=== PATIENT | female | born 1995 | race Caucasian/White ===

== ENCOUNTER 2021-07-15 21:43 | Emergency (ER) | payer BC, MEDICAID, SELFPAY ==
[2021-07-15 21:46] VITALS: BP 133/88; PULSE 85; RESP 16; TEMP 36.9; O2SAT 99; BMI 29.0
[2021-07-15 22:03] LABS: Appearance Urine HAZY; Color Urine YELLOW; Glucose Urine UA NEG (NEG); Leukocyte Esterase Urine NEG (NEG); Nitrite Urine NEG (NEG); PH 6.5 (5.0-8.0); UACC Culture Trigger NO; Urine Blood 1+ (NEG); Urine Ketones NEG (NEG); Urine Protein NEG (NEG-TRACE)
[2021-07-15 22:06] LABS: UPreg QC Valid YES; Urine Pregnancy NEGATIVE (NEGATIVE)
[2021-07-15 22:19] LABS: Bacteria Urine 2+ /LPF; Mucus Urine 1+ /LPF; Squamous Epithelial Cell Urine 2+ /LPF
[2021-07-15 22:20] LABS: Amorphous Sediment Urine 2+ /LPF
[2021-07-15 23:14] LABS: Basophils Absolute Auto 0.1 X10*3/uL (0.0-0.2); Basophils Percent Auto 0.5 % (0-2); Eosinophils Absolute Auto 0.1 X10*3/uL (0.0-0.4); Hematocrit 39.6 % (37.0-47.0); Hemoglobin 13.3 g/dl (12.0-16.0); Imm Gran Abs Auto 0.06 X10*3/uL (0.00-0.03); Imm Gran Pct Auto 0.5 % (0.0-0.4); Lymphocytes Absolute Auto 3.3 X10*3/uL (1.2-4.9); Lymphocytes Percent Auto 27.4 % (20-40); MANUAL DIFF FLAG NO; Mean Corpuscular HGB Conc 33.6 g/dl (31.0-35.0); Mean Corpuscular Hemoglobin 28.2 pg (27.0-33.0); Mean Corpuscular Volume 83.9 fL (80.0-98.0); Mean Platelet Volume 10.2 fL (9.4-12.3); Monocytes Absolute Auto 0.8 X10*3/uL (0.1-1.2); Monocytes Percent Auto 6.5 % (2-11); Neutrophils Absolute Auto 7.7 x10*3/uL (2.0-8.3); Neutrophils Percent Auto 64.1 % (45-73); Platelet Count 305 X10*3/uL (160-400); Red Blood Count 4.72 X10*6/uL (4.20-5.50); Red Cell Distribution Width 12.9 % (11.0-16.0)
[2021-07-15 23:38] LABS: Alanine Aminotransferase 42 U/L (0-31); Albumin Level 4.5 g/dL (3.5-5.0); Alkaline Phosphatase 60 U/L (39-117); Anion Gap 15 (12-20); Aspartate Amino Transferase 26 U/L (5-31); Bilirubin Direct 0.3 mg/dL (0.0-0.5); Bilirubin Total 0.8 mg/dL (0.0-1.0); Blood Urea Nitrogen 8 mg/dL (9-16); Calcium 9.6 mg/dL (8.4-10.2); Carbon Dioxide 23 mmol/L (22-29); Chloride 104 mmol/L (96-108); Creatinine Clr Calc Pharmacy 133.5; Estimated Glomerular Filt Rate > 60; Glucose Random 118 mg/dL (60-115); Lipase 22 U/L (8-78); Potassium 4.1 mmol/L (3.3-5.1); Sodium 138 mmol/L (135-145); Total Protein 6.9 g/dL (6.5-8.0)
== END 2021-07-16 01:03 | disposition left against medical advice (07) ==
PROVIDERS: Emergency Provider Emergency Medicine
DX: M54.50 Low back pain, unspecified (principal); R11.0 Nausea; Z79.899 Other long term (current) drug therapy
CPT/HCPCS: 36415; 80048; 80076; 81001; 81003; 81025; 83690; 85025; 99283

== ENCOUNTER 2023-12-27 10:33 | Emergency (ER) | payer MEDICAID, SELFPAY ==
--- NOTE | ~2023-12-27 | CT_ITS ---
EXAMINATION: CT HEAD WITHOUT CONTRAST CLINICAL INFORMATION: Headache and hypertension COMPARISON: None available. TECHNIQUE: Contiguous axial imaging was performed from the skull base to vertex without intravenous administration of contrast. This CT examination was performed using dose optimization techniques as appropriate, variously including the following: *Automated exposure control *Adjustment of mA and/or kV according to patient size (this includes techniques or standardized protocols for targeted exams where dose is matched to indication/reason for exam; i.e. extremities or head) *Use of iterative reconstruction technique DLP: 613 mGy-cm FINDINGS: Ventricles and sulci are normal. There is no evidence of acute intracranial hemorrhage, midline shift, mass effect, acute territorial edematous infarction, abnormal parenchymal attenuation or abnormal extra-axial fluid collection. Osseous calvarium and calvarial soft tissues are unremarkable. Visualized paranasal sinuses are well aerated. Bilateral mastoid air cells and middle ear cavities are well-aerated. CT/CT head/brain wo IV con IMPRESSION: No acute intracranial abnormality. Electronically signed by: Rupinder Mccord MD 12/27/2023 02:09 PM EDT
--- NOTE | 2023-12-27 10:35 | ECG_ITS ---
Test Reason : CP Blood Pressure : / mmHG Vent. Rate : 081 BPM Atrial Rate : 081 BPM P-R Int : 122 ms QRS Dur : 082 ms QT Int : 344 ms P-R-T Axes : 016 057 038 degrees QTc Int : 399 ms Normal sinus rhythm with sinus arrhythmia Normal ECG When compared with ECG of 09-AUG-2019 10:45, No significant change was found Referred By: Generic ED Physician Electronically Signed By:JEZ CERVANTES
[2023-12-27 10:41] VITALS: BP 154/97; PULSE 70; RESP 16; TEMP 36.6; O2SAT 99; BMI 28.0
[2023-12-27 10:59] LABS: MANUAL DIFF FLAG NO
[2023-12-27 11:00] LABS: Basophils Absolute Auto 0.1 X10*3/uL (0.0-0.2); Basophils Percent Auto 0.6 % (0-2); Eosinophils Absolute Auto 0.2 X10*3/uL (0.0-0.4); Eosinophils Percent Auto 2.1 % (0-4); Imm Gran Abs Auto 0.04 X10*3/uL (0.00-0.03); Imm Gran Pct Auto 0.4 % (0.0-0.4); Lymphocytes Absolute Auto 2.1 X10*3/uL (1.2-4.9); Lymphocytes Percent Auto 21.6 % (20-40); Mean Corpuscular HGB Conc 34.7 g/dl (31.0-35.0); Mean Corpuscular Hemoglobin 30.2 pg (27.0-33.0); Mean Corpuscular Volume 87.2 fL (80.0-98.0); Mean Platelet Volume 10.3 fL (9.4-12.3); Monocytes Absolute Auto 0.8 X10*3/uL (0.1-1.2); Monocytes Percent Auto 8.1 % (2-11); Neutrophils Absolute Auto 6.5 x10*3/uL (2.0-8.3); Neutrophils Percent Auto 67.2 % (45-73); Platelet Count 299 X10*3/uL (160-400); Red Blood Count 5.62 X10*6/uL (4.20-5.50); Red Cell Distribution Width 13.2 % (11.0-16.0); White Blood Count 9.6 X10*3/uL (4.8-10.8)
[2023-12-27 11:17] LABS: Anion Gap 14 (12-20); Blood Urea Nitrogen 9 mg/dL (9-16); Calcium 9.6 mg/dL (8.4-10.2); Carbon Dioxide 23 mmol/L (22-29); Chloride 108 mmol/L (96-108); Creatinine Clr Calc Pharmacy 111.4; Estimated Glomerular Filt Rate > 60; Glucose Random 107 mg/dL (60-115); Potassium 3.8 mmol/L (3.3-5.1); Sodium 141 mmol/L (135-145)
[2023-12-27 11:34] LABS: Troponin-I High Sensitivity < 2.7 ng/L (<3.5-17.0)
[2023-12-27 11:48] VITALS: PULSE 73
--- NOTE | 2023-12-27 12:01 | ED_ITS ---
HPI - Chest Pain General Chief Complaint: Chest Pain Stated Complaint: CP, High BP Time Seen by Provider: 12/27/23 11:30 Source: patient Mode of arrival: ambulatory Limitations: no limitations History of Present Illness ED Provider: DR. Ledesma HPI narrative: 28 years old female walked to the ED from a dental office after was found to have high blood pressure and patient required medical clearance before any dental procedure. Patient had history of gestational high blood pressure and preeclampsia currently patient is taking no blood pressure medication, for the past week she has been having a headache, dizziness, blurry vision, palpitation and mild chest pain. scheduled to have dental procedure today that was canceled after found to have high blood pressure today. patient went to [facility] yesterday for evaluation had 2 high blood pressure reading then patient decided not to wait to be seen there. Related Data Previous Rx's ?Medication ?Instructions ?Recorded lisinopril 5 mg tablet 5 mg PO DAILY #14 tabs 12/27/23 Allergies Allergy/AdvReac Type Severity Reaction Status Date / Time midazolam [From VERSED] Allergy Severe VIOLENT Verified 12/27/23 10:48 versed Allergy Unknown unsure Uncoded 07/14/19 00:00 reactive as child Review of Systems 2 Review of Systems: all other systems are reviewed and are negative Constitutional: Reports as per HPI and Reports no additional constitutional complaints Eyes: Reports as per HPI and Reports no additional eye complaints Reports system reviewed and no additional complaints, except as documented Cardiovascular: Reports as per HPI and Reports no additional cardiovascular complaints Respiratory: Reports as per HPI and Reports no additional respiratory complaints Gastrointestinal: Reports as per HPI and Reports no additional gastrointestinal complaints Genitourinary: Reports no additional female genitourinary complaints Musculoskeletal: Reports no additional musculoskeletal complaints Skin/Breast: Reports system reviewed and no additional complaints, except as docu Psychiatric: Reports no additional psychiatric complaints Endocrine: Reports no additional endocrine complaints Hematologic/Lymphatic: Reports no additional hematologic/lymphatic complaints Allergic/Immunologic: Reports no additional allergic/immunologic complaints Reports system reviewed and no additional complaints, except as documented and Reports Abnormal speech present [facility] Social History Social History Smoked in Last 30 Days: Yes Use of substances other than those prescribed or required for medical reasons: Yes Substance Use Type: Marijuana Substance Use Frequency: Occasionally Advance Directives: No Do you have a plan to hurt others: No Plan Patient : No Physical Exam 2 Vital Signs: Vital Signs: Last Vital Signs Temp 99.4 F 12/27/23 12:22 Pulse 72 12/27/23 12:22 Resp 18 12/27/23 12:22 BP 139/92 H 12/27/23 12:31 Pulse Ox 99 12/27/23 12:22 O2 Del Method Room Air 12/27/23 12:22 BMI result Body Mass Index 28.0 Vital signs have been reviewed and appear to be correct. Blood pressure elevated. Heart rate normal. Respiratory rate normal. Temperature normal. Oxygen saturation normal. Appearance: Alert. Oriented X3. No acute distress. Head: Normal external exam. Normocephalic. Atraumatic. No Quinonez signs noted. No raccoon eyes noted Eyes: PERRLA. EOMI. Conjunctiva and sclera normal. Eyelids normal. ENT: TM's Normal. Pharynx normal. Uvula midline. Moist mucous membranes. No trismus noted. No drooling noted. No muffled voice noted. Neck: Normal inspection. Neck supple. FROM. No adenopathy. Thyroid Normal. No meningeal signs. No neck mass noted. CVS: Normal heart rate and rhythm. Heart sound normal. No murmurs noted. Pulses normal throughout. Respiratory: No respiratory distress. Painless inspiration. Breath sounds normal. No wheezes/rales/rhonchi noted. Chest nontender. No accessory muscle usage noted or decreased air movement noted. Abdomen: Soft and nontender. Bowel sounds normal in all 4 quadrants. No distention noted. No organomegaly noted. No visible injury noted. Back: No CVA tenderness. Full range of motion noted. Skin: Skin warm and dry. Normal skin color. Normal skin turgor. No rashes/lesions/lacerations noted. Extremities: No lower extremity edema. Extremities exhibit normal range of motion. Extremities nontender. Neuro: Oriented X 3. Cranial nerve exam: II-XII are grossly intact No motor deficit. No sensory deficit. Reflexes normal. Course Reevaluation(s) Reevaluation #1: 28-year-old female with history of gestational hypertension and preeclampsia currently no diagnosis for hypertension had high blood pressure on different occasions with symptoms. No acute finding today for high blood pressure or evidence of end-organ damage. Will start the patient on lisinopril low dose 5 mg daily patient is scheduled to see her primary doctor within a week was instructed to keep records of her blood pressure and reviewed with her primary doctor. Time: 14:29 Medications Administered Discontinued Medications Generic Name Dose Route Start Last Admin Trade Name Justin PRN Reason Stop Dose Admin Lisinopril 5 mg 12/27/23 12:13 12/27/23 12:31 Lisinopril 5 Mg Tablet PO 12/27/23 12:14 5 mg ONCE ONE Administration Protocol Medical Decision Making Differential Diagnosis Differential Diagnoses: The differential diagnosis associated with the presentation includes ( Hypertensive bleed, intracranial bleed, essential hypertension, ACS, severe anemia, dehydration.) Admission/Observation Consideration of admission/observation: Escalation of care including admission/observation considered Lab Data MDM Lab Attestation statement: I reviewed the patient's lab results. 12/27/23 10:55 12/27/23 10:55 Labs: Lab Results 12/27/23 Range/Units 10:55 WBC 9.6 (4.8-10.8) X10*3/uL RBC 5.62 H (4.20-5.50) X10*6/uL Hgb 17.0 H D (12.0-16.0) g/dl Hct 49.0 H D (37.0-47.0) % MCV 87.2 (80.0-98.0) fL MCH 30.2 (27.0-33.0) pg MCHC 34.7 (31.0-35.0) g/dl RDW 13.2 (11.0-16.0) % Plt Count 299 (160-400) X10*3/uL MPV 10.3 (9.4-12.3) fL Immature Gran % (Auto) 0.4 (0.0-0.4) % Neut % (Auto) 67.2 (45-73) % Lymph % (Auto) 21.6 (20-40) % Casey % (Auto) 8.1 (2-11) % Eos % (Auto) 2.1 (0-4) % Baso % (Auto) 0.6 (0-2) % Lymph # (Auto) 2.1 (1.2-4.9) X10*3/uL Casey # (Auto) 0.8 (0.1-1.2) X10*3/uL Eos # (Auto) 0.2 (0.0-0.4) X10*3/uL Baso # (Auto) 0.1 (0.0-0.2) X10*3/uL Abs Immat Gran (auto) 0.04 H (0.00-0.03) X10*3/uL Absolute Neuts (auto) 6.5 (2.0-8.3) x10*3/uL Absolute Nucleated RBC 0.000 (0.0-0.012) X10*3/uL Nucleated RBC % (auto) 0.0 (0.0-0.2) /100WBC Sodium 141 (135-145) mmol/L Potassium 3.8 (3.3-5.1) mmol/L Chloride 108 (96-108) mmol/L Carbon Dioxide 23 (22-29) mmol/L Anion Gap 14 (12-20) BUN 9 (9-16) mg/dL Creatinine 0.81 (0.5-1.4) mg/dL Estim Creat Clear Calc 111.4 Estimated GFR > 60 Random Glucose 107 (60-115) mg/dL Calcium 9.6 (8.4-10.2) mg/dL Troponin I High Sens < 2.7 (<3.5-17.0) ng/L Independent Interpretation I performed an independent interpretation of an: EKG ( Normal sinus rhythm at 81 beats per minutes, normal intervals, no ST-T changes, no change from previous EKG.) and CT Scan ( head: No acute intracranial pathology.) Radiology Impression Discussion of test interpretation with radiology: I have reviewed the radiologist's reading. Discharge Plan Discharge Clinical Impression: Atypical chest pain, Essential hypertension Patient Disposition: Home, Self-Care Instructions: Hypertension (ED) Additional Instructions: take and record your blood pressure at home 3 different times a day for 1 week and review the records with your PCP. Prescriptions: New lisinopril 5 mg tablet 5 mg PO DAILY Qty: 14 0RF Referrals: Pam Connelly LPN [Emergency Nurse] - Print Language: Japanese
[2023-12-27 12:22] VITALS: BP 136/99; PULSE 72; RESP 18; TEMP 37.4; O2SAT 99
[2023-12-27 12:31] VITALS: BP 139/92
[2023-12-27] MEDS: lisinopriL 5 MG TABLET PO (12:31)
[2023-12-27 14:32] VITALS: BP 127/86; PULSE 76; RESP 14; O2SAT 97
[2023-12-27 14:53] VITALS: BP 127/86; PULSE 76; RESP 14; TEMP 37.1; O2SAT 97
== END 2023-12-27 14:54 | disposition home or self-care (01) ==
PROVIDERS: Emergency Provider Emergency Medicine
DX: R07.89 Other chest pain (principal); I10 Essential (primary) hypertension
CPT/HCPCS: 36415; 70450; 80048; 84484; 85025; 93005; 99284

== ENCOUNTER 2024-01-03 16:18 | Emergency (ER) | payer MEDICAID, SELFPAY ==
--- NOTE | ~2024-01-03 | XR_ITS ---
EXAMINATION: XR CHEST CLINICAL INFORMATION: Chest pain COMPARISON: None available. TECHNIQUE: 2 views of the chest were obtained. FINDINGS: No significant abnormality is noted involving the heart, lungs, mediastinum, bony thorax or soft tissues. XR/XR chest 2V IMPRESSION: Unremarkable examination. Electronically signed by: Frank Fox MD 01/03/2024 05:28 PM EDT RP
[2024-01-03 16:33] VITALS: BP 164/102; PULSE 78; RESP 16; TEMP 37.1; O2SAT 98; BMI 27.9
--- NOTE | 2024-01-03 16:34 | ED_ITS ---
HPI - General Adult General Chief complaint: Chest Pain Stated complaint: HBP issues/doesn't feel good Related Data Previous Rx's ?Medication ?Instructions ?Recorded lisinopril 5 mg tablet 5 mg PO DAILY #14 tabs 12/27/23 Allergies Allergy/AdvReac Type Severity Reaction Status Date / Time midazolam [From VERSED] Allergy Severe VIOLENT Verified 01/03/24 16:38 versed Allergy Unknown unsure Uncoded 07/14/19 00:00 reactive as child [facility] Social History Social History Substance Use Type: Marijuana Advance Directives: No Advance Directives Information Provided: No Physical Exam ED Vital Signs: BMI result Body Mass Index 27.9 Course Course Course Narrative: This is an RME: Additional HPI, ROS, PE not included below will be deferred to primary provider. RME assessment and note performed by: Jacy Davalos PA-C This is a [id number]-female, with a hx of new diagnosis of HTN, who presents to the ER with complaints of chest pain. Pt states that several days ago she was seen here for similar symptoms. Reporting rapid heart rate/palpitations, shakiness, CP. No recent travel, surgeries or hospitalizations. Recently seen by her PCP and was started on amlodipine, 1st dose taken this morning. She took her blood pressure at home and was elevated in the 160s over 100s. Also reporting flushing in her face. Plan: Labs, EKG, CXR, viral swabs Reevaluation(s) Reevaluation #1: Patient left without completing treatment. Medical Decision Making Lab Data 01/03/24 17:03 01/03/24 17:03 Labs: Lab Results 01/03/24 01/03/24 Range/Units 17:03 17:04 WBC 10.4 (4.8-10.8) X10*3/uL RBC 5.21 (4.20-5.50) X10*6/uL Hgb 15.5 (12.0-16.0) g/dl Hct 45.0 (37.0-47.0) % MCV 86.4 (80.0-98.0) fL MCH 29.8 (27.0-33.0) pg MCHC 34.4 (31.0-35.0) g/dl RDW 12.6 (11.0-16.0) % Plt Count 324 (160-400) X10*3/uL MPV 10.7 (9.4-12.3) fL Immature Gran % (Auto) 0.3 (0.0-0.4) % Neut % (Auto) 50.9 (45-73) % Lymph % (Auto) 38.4 (20-40) % Todd % (Auto) 8.4 (2-11) % Eos % (Auto) 1.2 (0-4) % Baso % (Auto) 0.8 (0-2) % Lymph # (Auto) 4.0 (1.2-4.9) X10*3/uL Todd # (Auto) 0.9 (0.1-1.2) X10*3/uL Eos # (Auto) 0.1 (0.0-0.4) X10*3/uL Baso # (Auto) 0.1 (0.0-0.2) X10*3/uL Abs Immat Gran (auto) 0.03 (0.00-0.03) X10*3/uL Absolute Neuts (auto) 5.3 (2.0-8.3) x10*3/uL Absolute Nucleated RBC 0.000 (0.0-0.012) X10*3/uL Nucleated RBC % (auto) 0.0 (0.0-0.2) /100WBC PT 10.7 L (10.9-12.4) SEC INR 0.9 (0.9-1.1) Sodium 141 (135-145) mmol/L Potassium 3.4 (3.3-5.1) mmol/L Chloride 108 (96-108) mmol/L Carbon Dioxide 23 (22-29) mmol/L Anion Gap 13 (12-20) BUN 10 (9-16) mg/dL Creatinine 0.79 (0.5-1.4) mg/dL Estim Creat Clear Calc 114.1 Estimated GFR > 60 Random Glucose 91 (60-115) mg/dL Calcium 9.9 (8.4-10.2) mg/dL Magnesium 2.0 (1.6-2.6) mg/dL Total Bilirubin 1.0 (0.0-1.0) mg/dL Direct Bilirubin 0.3 (0.0-0.5) mg/dL AST 21 (5-31) U/L ALT 28 (0-31) U/L Alkaline Phosphatase 48 (39-117) U/L Troponin I High Sens < 2.7 (<3.5-17.0) ng/L Total Protein 7.4 (6.5-8.0) g/dL Albumin 4.6 (3.5-5.0) g/dL TSH 0.32 (0.32-4.0) uIU/mL Beta HCG, Quant < 2 mIU/mL Influenza Type A (PCR) NEGATIVE (Negative) Influenza Type B (PCR) NEGATIVE (Negative) RSV RNA Qual (PCR) NEGATIVE (Negative) SARS-CoV-2 RNA (RT-PCR) NEGATIVE (Negative) Discharge Plan Discharge Clinical Impression: Chest pain Patient Disposition: Left W/O Completing Treatment Prescriptions: No Action lisinopril 5 mg tablet 5 mg PO DAILY Qty: 14 0RF Discharge Date/Time: 01/03/24 21:16
--- NOTE | 2024-01-03 16:37 | ECG_ITS ---
Test Reason : CP Blood Pressure : / mmHG Vent. Rate : 083 BPM Atrial Rate : 083 BPM P-R Int : 130 ms QRS Dur : 094 ms QT Int : 348 ms P-R-T Axes : 009 045 026 degrees QTc Int : 408 ms Normal sinus rhythm Normal ECG When compared with ECG of 27-DEC-2023 10:33, No significant change was found Referred By: Jacy Davalos Electronically Signed By:JEZ CERVANTES
--- NOTE | 2024-01-03 16:39 | PC.NURSE ---
patient reports her mother Heidi phone number is [phone] if needed
[2024-01-03 17:09] LABS: MANUAL DIFF FLAG NO
[2024-01-03 17:15] LABS: INTERNATIONAL NORM RATIO 0.9 (0.9-1.1); Prothrombin Time 10.7 SEC (10.9-12.4)
[2024-01-03 17:36] LABS: Basophils Absolute Auto 0.1 X10*3/uL (0.0-0.2); Basophils Percent Auto 0.8 % (0-2); Eosinophils Absolute Auto 0.1 X10*3/uL (0.0-0.4); Eosinophils Percent Auto 1.2 % (0-4); Hemoglobin 15.5 g/dl (12.0-16.0); Imm Gran Abs Auto 0.03 X10*3/uL (0.00-0.03); Imm Gran Pct Auto 0.3 % (0.0-0.4); Lymphocytes Percent Auto 38.4 % (20-40); Mean Corpuscular HGB Conc 34.4 g/dl (31.0-35.0); Mean Corpuscular Hemoglobin 29.8 pg (27.0-33.0); Mean Corpuscular Volume 86.4 fL (80.0-98.0); Mean Platelet Volume 10.7 fL (9.4-12.3); Monocytes Absolute Auto 0.9 X10*3/uL (0.1-1.2); Monocytes Percent Auto 8.4 % (2-11); Neutrophils Absolute Auto 5.3 x10*3/uL (2.0-8.3); Neutrophils Percent Auto 50.9 % (45-73); Platelet Count 324 X10*3/uL (160-400); Red Blood Count 5.21 X10*6/uL (4.20-5.50); Red Cell Distribution Width 12.6 % (11.0-16.0); White Blood Count 10.4 X10*3/uL (4.8-10.8)
[2024-01-03 17:39] LABS: Alanine Aminotransferase 28 U/L (0-31); Albumin Level 4.6 g/dL (3.5-5.0); Alkaline Phosphatase 48 U/L (39-117); Anion Gap 13 (12-20); Aspartate Amino Transferase 21 U/L (5-31); Bilirubin Direct 0.3 mg/dL (0.0-0.5); Blood Urea Nitrogen 10 mg/dL (9-16); Calcium 9.9 mg/dL (8.4-10.2); Carbon Dioxide 23 mmol/L (22-29); Chloride 108 mmol/L (96-108); Creatinine Clr Calc Pharmacy 114.1; Estimated Glomerular Filt Rate > 60; Glucose Random 91 mg/dL (60-115); Potassium 3.4 mmol/L (3.3-5.1); Sodium 141 mmol/L (135-145); Total Protein 7.4 g/dL (6.5-8.0)
[2024-01-03 17:44] LABS: HCG Quantitative < 2 mIU/mL
[2024-01-03 17:44] LABS: Troponin-I High Sensitivity < 2.7 ng/L (<3.5-17.0)
[2024-01-03 17:50] LABS: Influenza A PCR NEGATIVE (Negative); Influenza B PCR NEGATIVE (Negative); Resp Syncy Virus RNA Qual PCR NEGATIVE (Negative); SARS COV2 PCR INHOUSE NEGATIVE (Negative)
[2024-01-03 17:53] LABS: TSH reflex Free T4 0.32 uIU/mL (0.32-4.0)
== END 2024-01-03 21:16 | disposition left against medical advice (07) ==
PROVIDERS: Physician Assistant Medical; Emergency Provider Emergency Medicine; PCP Internal Medicine
DX: R07.9 Chest pain, unspecified (principal); R00.2 Palpitations; Z53.21 Procedure and treatment not carried out due to patient leaving prior to being seen by health care provider; Z03.818 Encounter for observation for suspected exposure to other biological agents ruled out
CPT/HCPCS: 0241U; 36415; 71046; 80048; 80076; 83735; 84443; 84484; 84702; 85025; 85610; 93005; 99281; 99283; 99284

== ENCOUNTER 2024-03-01 21:36 | Emergency (ER) | payer MEDICAID, SELFPAY ==
[2024-03-01 21:43] VITALS: BP 130/75; PULSE 96; RESP 20; TEMP 36.5; O2SAT 98; BMI 24.5
[2024-03-01 22:04] LABS: MANUAL DIFF FLAG NO
[2024-03-01 22:05] LABS: Basophils Absolute Auto 0.1 X10*3/uL (0.0-0.2); Basophils Percent Auto 0.6 % (0-2); Eosinophils Absolute Auto 0.2 X10*3/uL (0.0-0.4); Eosinophils Percent Auto 1.9 % (0-4); Hematocrit 39.9 % (37.0-47.0); Imm Gran Abs Auto 0.03 X10*3/uL (0.00-0.03); Imm Gran Pct Auto 0.3 % (0.0-0.4); Lymphocytes Absolute Auto 3.7 X10*3/uL (1.2-4.9); Lymphocytes Percent Auto 34.1 % (20-40); Mean Corpuscular HGB Conc 35.1 g/dl (31.0-35.0); Mean Corpuscular Hemoglobin 30.1 pg (27.0-33.0); Mean Corpuscular Volume 85.8 fL (80.0-98.0); Mean Platelet Volume 10.2 fL (9.4-12.3); Monocytes Absolute Auto 0.8 X10*3/uL (0.1-1.2); Monocytes Percent Auto 7.6 % (2-11); Neutrophils Percent Auto 55.5 % (45-73); Platelet Count 296 X10*3/uL (160-400); Red Blood Count 4.65 X10*6/uL (4.20-5.50); Red Cell Distribution Width 12.2 % (11.0-16.0); White Blood Count 10.9 X10*3/uL (4.8-10.8)
[2024-03-01 22:19] LABS: Alanine Aminotransferase 41 U/L (0-31); Albumin Level 4.3 g/dL (3.5-5.0); Alkaline Phosphatase 48 U/L (39-117); Anion Gap 9 (12-20); Aspartate Amino Transferase 28 U/L (5-31); Blood Urea Nitrogen 14 mg/dL (9-16); Calcium 9.2 mg/dL (8.4-10.2); Carbon Dioxide 26 mmol/L (22-29); Chloride 106 mmol/L (96-108); Creatinine Clr Calc Pharmacy 69.4; Estimated Glomerular Filt Rate 57; Glucose Random 95 mg/dL (60-115); Lipase 28 U/L (8-78); Potassium 3.4 mmol/L (3.3-5.1); Sodium 138 mmol/L (135-145); Total Protein 6.9 g/dL (6.5-8.0)
== END 2024-03-01 23:58 | disposition left against medical advice (07) ==
PROVIDERS: Emergency Provider Emergency Medicine; PCP Internal Medicine
DX: R30.9 Painful micturition, unspecified (principal); Z53.21 Procedure and treatment not carried out due to patient leaving prior to being seen by health care provider
CPT/HCPCS: 36415; 80053; 83690; 85025; 99281

== ENCOUNTER 2024-06-22 09:57 | Emergency (ER) | payer OTHER, SELFPAY ==
[2024-06-22 10:01] VITALS: BP 124/77; PULSE 80; RESP 18; TEMP 36.7; O2SAT 98; BMI 22.3
[2024-06-22 10:26] LABS: Appearance Urine Clear; Color Urine Yellow; Glucose Urine UA Negative (Negative); Leukocyte Esterase Urine Negative (Negative); Nitrite Urine Negative (Negative); Specific Gravity - Urine <= 1.005 (1.005-1.025); Urine Blood Negative (Negative); Urine Ketones Negative (Negative); Urine Protein Negative (Neg-Trace)
--- NOTE | 2024-06-22 10:53 | ED.FEMALEGU ---
HPI - Female Genitourinary General Chief complaint: Urogenital-Female Stated complaint: UTI Time Seen by Provider: 06/22/24 10:51 Source: patient, RN notes reviewed and old records reviewed Mode of arrival: ambulatory History of Present Illness ED Provider: Colleen Fox PA-C HPI Narrative: 29-year-old female with no significant past medical history presenting to the ED complaining of continued dysuria, urinary urgency and hesitancy x 1 month. Admits was diagnosed with UTI and treated with multiple antibiotics since the beginning of June, initially on course of Macrobid, followed by Keflex x2 last finished 3 day course on 06/19. admits to low back pain and suprapubic discomfort. reports some pelvic discharge, however has seen her OBGYN, had pelvic exam and tested for STIs and everything was negative. Has also taken multiple 1x dose of Diflucan w/o relief. Denies fever, chills, nausea, vomiting Related Data Previous Rx's ?Medication ?Instructions ?Recorded lisinopril 5 mg tablet 5 mg PO DAILY #14 tabs 12/27/23 phenazopyridine 200 mg tablet 200 mg PO TID PRN pain 6 doses #6 06/22/24 (Pyridium) tabs Allergies Allergy/AdvReac Type Severity Reaction Status Date / Time midazolam [From VERSED] Allergy Severe VIOLENT Verified 06/22/24 10:05 versed Allergy Unknown unsure Uncoded 03/01/24 21:45 reactive as child Review of Systems Review of Systems: Yes all other systems are reviewed and are negative Constitutional: Constitutional: Reports as per [facility] Past Medical History Attestation statement: The following information was validated with the patient. Source: old records reviewed Social History Social History Smoked in Last 30 Days: No Use of substances other than those prescribed or required for medical reasons: No Substance Use Type: Marijuana Advance Directives: No Advance Directives Information Provided: Yes Do you have a plan to hurt others: No Plan Physical Exam Vital Signs: Vital Signs: Last Vital Signs Temp 98.3 F 06/22/24 13:20 Pulse 69 06/22/24 13:20 Resp 16 06/22/24 13:20 BP 106/67 06/22/24 13:20 Pulse Ox 99 06/22/24 13:20 O2 Del Method Room Air 06/22/24 13:20 BMI result Body Mass Index 22.3 Const: General: cooperative, healthy appearing and no acute distress Orientation/consciousness: patient oriented x3 Limitations: no limitations HEENT: Head: Yes normal to inspection and Yes atraumatic Ears: hearing grossly normal bilaterally General nose exam: Normal external nose present Face and sinus: Yes normal facial exam Eyes: General: appearance normal, both eyes and all related structures EOM: EOMs intact bilaterally Neck: Neck: Yes normal visual inspection and Yes no meningeal signs Resp: Effort & Inspection: normal respiratory effort and no respiratory distress Auscultation: clear to auscultation bilaterally Cardio: Rate: regular rate Heart sounds: S1 normal heart sound present and S2 normal heart sound present GI: Inspection: Yes normal to inspection Palpation (GI): Soft to palpation, nontender, no guarding and not rigid : General: Yes no CVA tenderness Back/Spine/Pelvis: Back: no CVA tenderness Skin: Rashes: no rashes Wounds: no wounds Neuro: General: patient oriented x3, tone normal and no meningeal signs Cranial nerves: Yes CN's II-XII intact bilaterally Gait exam (Neuro): Normal gait present Extrem: General: Yes normal to inspection Course Course Course Narrative: -1255-- leukopenia to 4.6. Labs otherwise reassuring including CPK WNL - UA and urine negative > will treat patient for cystitis with Pyridium and urology follow-up Results discussed with patient including worrisome signs and symptoms and strict return precautions, and when to return to the emergency department. They verbalized understanding and feel safe for discharge at this time. Medications Administered Discontinued Medications Generic Name Dose Route Start Last Admin Trade Name Freq PRN Reason Stop Dose Admin Phenazopyridine HCl 100 mg 06/22/24 12:56 06/22/24 13:16 Phenazopyridine Hcl 100 Mg Tablet PO 06/22/24 12:57 100 mg ONCE ONE Administration Medical Decision Making Medical Decision Making [facility] Narrative: 29-year-old female with no significant past medical history presenting to the ED complaining of continued dysuria, urinary urgency and hesitancy x 1 month. On exam vital signs stable, NAD, nontoxic appearing, abdomen soft/nontender, no CVAT. Concern for cystitis vs UTI vs pyelo. Lower suspicion for renal stone, cholecystitis / lithiasis, pancreatitis, appendicitis /diverticulitis. Lower suspicion for STI with recent negative testing. Unlikely TOA Plan: Labs, UA Please refer to course for remaining clinical decision making, interpretation of labs/imaging results, and discussions with consultants and/or family members. Differential Diagnosis Differential Diagnoses: The differential diagnosis associated with the presentation includes As above Admission/Observation Consideration of admission/observation: Escalation of care including admission/observation considered Lab Data MDM Lab Attestation statement: I reviewed the patient's lab results. 06/22/24 11:15 06/22/24 11:15 Labs: Lab Results 06/22/24 06/22/24 Range/Units 10:14 11:15 WBC 4.6 L (4.8-10.8) X10*3/uL RBC 4.48 (4.20-5.50) X10*6/uL Hgb 13.4 (12.0-16.0) g/dl Hct 38.8 (37.0-47.0) % MCV 86.6 (80.0-98.0) fL MCH 29.9 (27.0-33.0) pg MCHC 34.5 (31.0-35.0) g/dl RDW 11.8 (11.0-16.0) % Plt Count 248 (160-400) X10*3/uL MPV 10.3 (9.4-12.3) fL Immature Gran % (Auto) 0.0 (0.0-0.4) % Neut % (Auto) 40.1 L (45-73) % Lymph % (Auto) 48.8 H (20-40) % Bracken % (Auto) 8.5 (2-11) % Eos % (Auto) 2.2 (0-4) % Baso % (Auto) 0.4 (0-2) % Lymph # (Auto) 2.2 (1.2-4.9) X10*3/uL Bracken # (Auto) 0.4 (0.1-1.2) X10*3/uL Eos # (Auto) 0.1 (0.0-0.4) X10*3/uL Baso # (Auto) 0.0 (0.0-0.2) X10*3/uL Abs Immat Gran (auto) 0.00 (0.00-0.03) X10*3/uL Absolute Neuts (auto) 1.8 L (2.0-8.3) x10*3/uL Absolute Nucleated RBC 0.000 (0.0-0.012) X10*3/uL Nucleated RBC % (auto) 0.0 (0.0-0.2) /100WBC Sodium 141 (135-145) mmol/L Potassium 3.9 (3.3-5.1) mmol/L Chloride 108 (96-108) mmol/L Carbon Dioxide 25 (22-29) mmol/L Anion Gap 12 (12-20) BUN 7 L (9-16) mg/dL Creatinine 0.57 (0.5-1.4) mg/dL Estim Creat Clear Calc 138.7 Estimated GFR > 60 Random Glucose 87 (60-115) mg/dL Calcium 8.9 (8.4-10.2) mg/dL Total Creatine Kinase 60 (26-140) U/L Urine Color Yellow Urine Appearance Clear Urine pH 7.0 (5.0-9.0) Ur Specific [place] <= 1.005 (1.005-1.025) Urine Protein Negative (Neg-Trace) mg/dL Urine Glucose (UA) Negative (Negative) mg/dL Urine Ketones Negative (Negative) mg/dL Urine Blood Negative (Negative) Urine Nitrite Negative (Negative) Ur Leukocyte Esterase Negative (Negative) Urine Test NEGATIVE (NEGATIVE) Radiology Impression Discussion of test interpretation with radiology: I have reviewed the radiologist's reading. External Record Review External record reviewed: Inpatient record, Office record, Outpatient record, Prior outpatient labs, Prior outpatient radiology, Primary care record and Outside ED record Tests considered The following testing was considered but not selected: As above Prescription Management I considered prescription management with: Pain Medication and Antibiotic Chronic Conditions Patient?s care impacted by: Other Social Determinants Patient?s care significantly limited by Social Determinants of Health including: Other Social Determinant of Health Discharge Plan Discharge Clinical Impression: Cystitis Patient Disposition: Home, Self-Care Instructions: Interstitial Cystitis (ED) Additional Instructions: your blood work and urine are reassuring. Your urine is not infected Pyridium will help with your urinary discomfort. This will turn your urine orange, this is normal Please have close follow up with her doctor as well as urology If her symptoms persist or worsen or pain becomes unbearable you have fever, continued back pain, nausea or vomiting return to the ED Prescriptions: New phenazopyridine [Pyridium] 200 mg tablet 200 mg PO TID PRN (Reason: pain) Qty: 6 0RF No Action lisinopril 5 mg tablet 5 mg PO DAILY Qty: 14 0RF Referrals: [facility] [place] [facility] [Provider Group] Siria Monzon MD [Primary Care Provider] - Interventions: ED Discharge Assessment Last Done: 06/22/24 13:20 Discharge Date/Time: 06/22/24 13:22 Print Language: Algerian
[2024-06-22 11:17] VITALS: BP 104/67; PULSE 76; RESP 16; TEMP 37; O2SAT 98
[2024-06-22 11:21] LABS: UPreg QC Valid YES; Urine Pregnancy NEGATIVE (NEGATIVE)
[2024-06-22 11:26] LABS: MANUAL DIFF FLAG NO
[2024-06-22 11:35] LABS: Basophils Percent Auto 0.4 % (0-2); Eosinophils Absolute Auto 0.1 X10*3/uL (0.0-0.4); Eosinophils Percent Auto 2.2 % (0-4); Hematocrit 38.8 % (37.0-47.0); Hemoglobin 13.4 g/dl (12.0-16.0); Lymphocytes Absolute Auto 2.2 X10*3/uL (1.2-4.9); Lymphocytes Percent Auto 48.8 % (20-40); Mean Corpuscular HGB Conc 34.5 g/dl (31.0-35.0); Mean Corpuscular Hemoglobin 29.9 pg (27.0-33.0); Mean Corpuscular Volume 86.6 fL (80.0-98.0); Mean Platelet Volume 10.3 fL (9.4-12.3); Monocytes Absolute Auto 0.4 X10*3/uL (0.1-1.2); Monocytes Percent Auto 8.5 % (2-11); Neutrophils Absolute Auto 1.8 x10*3/uL (2.0-8.3); Neutrophils Percent Auto 40.1 % (45-73); Platelet Count 248 X10*3/uL (160-400); Red Blood Count 4.48 X10*6/uL (4.20-5.50); Red Cell Distribution Width 11.8 % (11.0-16.0); White Blood Count 4.6 X10*3/uL (4.8-10.8)
[2024-06-22 11:43] LABS: Anion Gap 12 (12-20); Blood Urea Nitrogen 7 mg/dL (9-16); Calcium 8.9 mg/dL (8.4-10.2); Carbon Dioxide 25 mmol/L (22-29); Chloride 108 mmol/L (96-108); Creatinine Clr Calc Pharmacy 138.7; Estimated Glomerular Filt Rate > 60; Glucose Random 87 mg/dL (60-115); Potassium 3.9 mmol/L (3.3-5.1); Sodium 141 mmol/L (135-145)
[2024-06-22 12:19] VITALS: BP 101/63; PULSE 67; RESP 16; TEMP 36.7; O2SAT 98
[2024-06-22] MEDS: Phenazopyridine HCL 100 MG TABLET PO (13:16)
[2024-06-22 13:20] VITALS: BP 106/67; PULSE 69; RESP 16; TEMP 36.8; O2SAT 99
== END 2024-06-22 13:22 | disposition home or self-care (01) ==
PROVIDERS: Physician Assistant; Emergency Provider Emergency Medicine Emergency Medical Services; PCP Internal Medicine
DX: N30.90 Cystitis, unspecified without hematuria (principal); R30.0 Dysuria; R39.15 Urgency of urination
CPT/HCPCS: 36415; 80048; 81003; 81025; 82550; 85025; 99283; 99284

== ENCOUNTER 2024-07-13 15:18 | Emergency (ER) | payer OTHER, SELFPAY ==
--- NOTE | ~2024-07-13 | XR_ITS ---
EXAMINATION: XR CHEST CLINICAL INFORMATION: pain COMPARISON: January 03, 2024. TECHNIQUE: 2 views of the chest were obtained. FINDINGS: No consolidation, pleural effusion or pneumothorax. No hyperinflation. Cardiomediastinal silhouette size is normal. Osseous structures are intact. XR/XR chest 2V IMPRESSION: No acute airspace disease. Electronically signed by: Harjit Munson MD 07/13/2024 03:54 PM EDT
--- NOTE | 2024-07-13 15:24 | ECG_ITS ---
Test Reason : CP Blood Pressure : */* mmHG Vent. Rate : 71 BPM Atrial Rate : 71 BPM P-R Int : 128 ms QRS Dur : 86 ms QT Int : 354 ms P-R-T Axes : 22 69 46 degrees QTcB Int : 384 ms Normal sinus rhythm with sinus arrhythmia Normal ECG When compared with ECG of 03-Jan-2024 16:48, No significant change was found Referred By: Sterling Holden Electronically Signed By: Joey Yuan
[2024-07-13 15:35] VITALS: BP 148/91; PULSE 80; RESP 19; TEMP 36.6; O2SAT 98; BMI 22.6
--- NOTE | 2024-07-13 15:36 | ED_ITS ---
HPI - General Adult General Chief complaint: Chest Pain Stated complaint: Chest pain with multiple complaints Time Seen by Provider: 07/13/24 16:43 History of Present Illness ED Provider: Amanda ADAMES narrative: The patient is a 29-year-old female. She has a history of hypertension and takes 2 antihypertensive medications. She says that last week she was feeling ill and short of breath. She went to an urgent care 5 days ago and was prescribed prednisone and an inhaler. She says that her breathing has improved since being on the prednisone. She has used the inhaler very little. However she has continued to have chest pain. Today she also developed pains in both of her knees and she thought both of her knees were swollen and red. She was very concerned and came to the hospital for evaluation. While waiting to be seen her knee seemed to be feeling better. Nevertheless she still feels generally ill. Related Data Previous Rx's ?Medication ?Instructions ?Recorded lisinopril 5 mg tablet 5 mg PO DAILY #14 tabs 12/27/23 phenazopyridine 200 mg tablet 200 mg PO TID PRN pain 6 doses #6 06/22/24 (Pyridium) tabs Allergies Allergy/AdvReac Type Severity Reaction Status Date / Time midazolam [From VERSED] Allergy Severe VIOLENT Verified 07/13/24 15:37 versed Allergy Unknown unsure Uncoded 07/13/24 15:37 reactive as child Review of Systems 2 Review of Systems: Yes all other systems are reviewed and are negative [facility] Social History Social History Substance Use Type: Marijuana Advance Directives: No Advance Directives Information Provided: No Do you have a plan to hurt others: No Plan Physical Exam ED Vital Signs: Vital Signs - 24 hr 07/13/24 15:35 07/13/24 16:28 07/13/24 17:54 Temperature 98 F 98.3 F Pulse Rate 80 65 71 Respiratory Rate 19 18 20 Blood Pressure 148/91 H 119/72 116/77 Pulse Oximetry 98 98 100 Oxygen Delivery Method Room Air Room Air Room Air BMI result Body Mass Index 22.6 Const Other: The patient is awake and alert. She does not appear in any distress. She was sitting cross-legged on the stretcher. Orientation/consciousness: patient oriented x3 HENMT Other: Face is symmetrical. Mucous membranes are moist. The posterior pharynx is normal. Nasal passages are clear. Eyes General: appearance normal, both eyes and all related structures Eyelids: Yes eyelids normal Pupils: Equal, round and reactive pupils present EOM: EOMs intact bilaterally Neck Neck: Yes normal visual inspection, Yes full ROM and Yes no lymphadenopathy Resp Other: No wheezing Effort & Inspection: normal respiratory effort Auscultation: clear to auscultation bilaterally Cardio Other: No murmur Rate: regular rate Rhythm: regular rhythm Heart sounds: S1 normal heart sound present and S2 normal heart sound present Skin Other: The skin is dry and unremarkable. The skin of the knees is normal. Neuro General: patient oriented x3, tone normal, moves all extremities, no focal motor deficits and CN's II-XI intact bilaterally Cranial nerves: Yes Equal, round and reactive pupils present Extrem Other: The knees appear normal. There is no swelling of the knees. No effusion present. Good range of motion of the knees. She seems to move her knees easily without discomfort. There are good pulses in the feet. Course Course Course Narrative: RME, this is a rapid medical exam performed by Braulio Holden please refer to primary provider for complete H&P- 29-year-old female presents for evaluation of chest pain and swollen legs. The patient reports that she has chronic chest pain. She went to urgent care a few days ago and was given prednisone and something for cough. She reports swelling in her knees but denies any injury. EKG was performed, plan for labs, chest x-ray viral swabs. Patient reports that she was started on hormonal IUD in March Medical Decision Making Medical Decision Making MDM Narrative: The patient is a 29-year-old female who had apparently been having bilateral knee pain earlier today. At the time that I saw her she was sitting up on the hospital stretcher with her legs crossed. Her knees looked entirely well and she said that they were feeling better. She also described a lot of general constitutional symptoms. She recently finished a course of prednisone. Her physical exam today is unremarkable. Her lungs are clear. Vital signs are unremarkable. Chest x-ray is negative. EKG is normal. Labs including a D- dimer, ESR, and CRP are unremarkable. My overall impression is that there was no acutely dangerous process at work. I think she may be discharged to follow up with her regular doctor. Lab Data 07/13/24 15:46 07/13/24 15:46 Labs: Lab Results 07/13/24 07/13/24 Range/Units 07:00 15:46 WBC 10.0 (4.8-10.8) X10*3/uL RBC 4.52 (4.20-5.50) X10*6/uL Hgb 13.4 (12.0-16.0) g/dl Hct 39.0 (37.0-47.0) % MCV 86.3 (80.0-98.0) fL MCH 29.6 (27.0-33.0) pg MCHC 34.4 (31.0-35.0) g/dl RDW 12.0 (11.0-16.0) % Plt Count 311 D (160-400) X10*3/uL MPV 10.0 (9.4-12.3) fL Immature Gran % (Auto) 0.7 H (0.0-0.4) % Neut % (Auto) 77.2 H (45-73) % Lymph % (Auto) 16.1 L (20-40) % Elk % (Auto) 5.7 (2-11) % Eos % (Auto) 0.1 (0-4) % Baso % (Auto) 0.2 (0-2) % Lymph # (Auto) 1.6 (1.2-4.9) X10*3/uL Elk # (Auto) 0.6 (0.1-1.2) X10*3/uL Eos # (Auto) 0.0 (0.0-0.4) X10*3/uL Baso # (Auto) 0.0 (0.0-0.2) X10*3/uL Abs Immat Gran (auto) 0.07 H (0.00-0.03) X10*3/uL Absolute Neuts (auto) 7.7 (2.0-8.3) x10*3/uL Absolute Nucleated RBC 0.000 (0.0-0.012) X10*3/uL Nucleated RBC % (auto) 0.0 (0.0-0.2) /100WBC ESR 7 (0-20) MM/HR PT 10.4 L (10.9-12.4) SEC INR 0.9 (0.9-1.1) D-Dimer High Sensitivty < 150 NG/ML Sodium 142 (135-145) mmol/L Potassium 3.9 (3.3-5.1) mmol/L Chloride 105 (96-108) mmol/L Carbon Dioxide 26 (22-29) mmol/L Anion Gap 15 (12-20) BUN 11 (9-16) mg/dL Creatinine 0.65 (0.5-1.4) mg/dL Estim Creat Clear Calc 121.6 Estimated GFR > 60 Random Glucose 119 H (60-115) mg/dL Calcium 9.4 (8.4-10.2) mg/dL Total Bilirubin 0.9 (0.0-1.0) mg/dL AST 25 (5-31) U/L ALT 35 H (0-31) U/L Alkaline Phosphatase 50 (39-117) U/L Troponin I High Sens < 2.7 (<3.5-17.0) ng/L C-Reactive Protein 0.23 (< or = 0.50) mg/dL Total Protein 7.3 (6.5-8.0) g/dL Albumin 4.5 (3.5-5.0) g/dL Lipase 17 (8-78) U/L Beta HCG, Quant < 2 mIU/mL Influenza Type A (PCR) NEGATIVE (Negative) Influenza Type B (PCR) NEGATIVE (Negative) RSV RNA Qual (PCR) NEGATIVE (Negative) SARS-CoV-2 RNA (RT-PCR) NEGATIVE (Negative) Independent Interpretation I performed an independent interpretation of an: EKG Interpretation: EKG at 15:24 shows normal sinus rhythm with a sinus arrhythmia at 71 beats per minute. Normal EKG. Unchanged from previous. Discharge Plan Discharge Clinical Impression: Pain in both knees, Chest pain Patient Disposition: Home, Self-Care Additional Instructions: Your testing in the emergency room today is very reassuring. There are no findings which are concerning with regard to your heart or your lungs. Your tests for infections are also very reassuring. Please continue your current medications. Please contact your regular doctor's office for a follow up appointment in the next few weeks. If you continued to have a lot of body pains it might be reasonable to discuss a possible referral to a calender operator helper. Return to the emergency room if significantly worse. Prescriptions: No Action lisinopril 5 mg tablet 5 mg PO DAILY Qty: 14 0RF phenazopyridine [Pyridium] 200 mg tablet 200 mg PO TID PRN (Reason: pain) Qty: 6 0RF Referrals: Siria Monzon MD [Primary Care Provider] - (Body pains) Interventions: ED Discharge Assessment Last Done: 07/13/24 17:54 Discharge Date/Time: 07/13/24 17:55 Print Language: [place]an
[2024-07-13 15:55] LABS: MANUAL DIFF FLAG NO
[2024-07-13 15:56] LABS: Basophils Percent Auto 0.2 % (0-2); Eosinophils Percent Auto 0.1 % (0-4); Hemoglobin 13.4 g/dl (12.0-16.0); Imm Gran Abs Auto 0.07 X10*3/uL (0.00-0.03); Imm Gran Pct Auto 0.7 % (0.0-0.4); Lymphocytes Absolute Auto 1.6 X10*3/uL (1.2-4.9); Lymphocytes Percent Auto 16.1 % (20-40); Mean Corpuscular HGB Conc 34.4 g/dl (31.0-35.0); Mean Corpuscular Hemoglobin 29.6 pg (27.0-33.0); Mean Corpuscular Volume 86.3 fL (80.0-98.0); Monocytes Absolute Auto 0.6 X10*3/uL (0.1-1.2); Monocytes Percent Auto 5.7 % (2-11); Neutrophils Absolute Auto 7.7 x10*3/uL (2.0-8.3); Neutrophils Percent Auto 77.2 % (45-73); Platelet Count 311 X10*3/uL (160-400); Red Blood Count 4.52 X10*6/uL (4.20-5.50)
[2024-07-13 15:59] LABS: INTERNATIONAL NORM RATIO 0.9 (0.9-1.1); Prothrombin Time 10.4 SEC (10.9-12.4)
[2024-07-13 16:14] LABS: Alanine Aminotransferase 35 U/L (0-31); Albumin Level 4.5 g/dL (3.5-5.0); Anion Gap 15 (12-20); Aspartate Amino Transferase 25 U/L (5-31); Bilirubin Total 0.9 mg/dL (0.0-1.0); Blood Urea Nitrogen 11 mg/dL (9-16); C Reactive Protein 0.23 mg/dL (< or = 0.50); Calcium 9.4 mg/dL (8.4-10.2); Carbon Dioxide 26 mmol/L (22-29); Chloride 105 mmol/L (96-108); Creatinine Clr Calc Pharmacy 121.6; Estimated Glomerular Filt Rate > 60; Glucose Random 119 mg/dL (60-115); Lipase 17 U/L (8-78); Potassium 3.9 mmol/L (3.3-5.1); Sodium 142 mmol/L (135-145); Total Protein 7.3 g/dL (6.5-8.0)
[2024-07-13 16:21] LABS: Troponin-I High Sensitivity < 2.7 ng/L (<3.5-17.0)
[2024-07-13 16:21] LABS: Alkaline Phosphatase 50 U/L (39-117); HCG Quantitative < 2 mIU/mL
[2024-07-13 16:28] VITALS: BP 119/72; PULSE 65; RESP 18; O2SAT 98
[2024-07-13 16:31] LABS: Erythrocyte Sedimentation Rate 7 MM/HR (0-20)
[2024-07-13 16:32] LABS: Influenza A PCR NEGATIVE (Negative); Influenza B PCR NEGATIVE (Negative); Resp Syncy Virus RNA Qual PCR NEGATIVE (Negative); SARS COV2 PCR INHOUSE NEGATIVE (Negative)
--- NOTE | 2024-07-13 17:17 | PC.NURSE ---
This Rn was in talking with pt,, she was stating that her CP is her baseline and that she is not here for that, pt reporting she was cooking dinner for her son when both her knees started to hurt and she was unable to bend her knees. Pt is currently sitting in bed with her legs crossed crossed in bed. Pt has minimal swelling noted, no redness, falls or trauma noted to either extremity.
[2024-07-13 17:27] LABS: D Dimer High Sensitivity < 150 NG/ML
[2024-07-13 17:54] VITALS: BP 116/77; PULSE 71; RESP 20; TEMP 36.8; O2SAT 100
--- OUTSIDE RECORDS SUMMARY | 2024-07-13 19:07 | XMS_ITS | Encounter Summary ---
Author Organization [facility] Address [address] [place] [phone] Phone Care Team Providers Care Desktop Publishing Specialist Name Role Phone Unavailable Primary Care Provider Unavailabl e Encounter Details Date Type Department Care Team (Late st Contact Info) Description 05/18/2013 Documentation [facility] [place] [facility] [address] [place] [address] Family Medicine, Physician [address] [place], [place] [address] Social History Tobacco Use Types Packs/Day Years Used Date Smoking Tobacco: Never Assessed Comments Unknown Sex and Gender Information Value Date Recorded Sex Assigned at Not on file Legal Sex Female 5:05 PM EDT Gender Identity Not on file Sexual Orientation Not on file documented as of this encounter Plan of Treatment Not on file documented as of this encounter Visit Diagnoses Not on filedocumented in this encounter
--- OUTSIDE RECORDS SUMMARY | 2024-07-13 19:07 | XMS_ITS | Clinical Summary ---
Author Organization [facility] Address [address] [place] [address] Care Team Providers Care Proof Plate Maker Name Role Phone Siria Monzon MD Primary Care Provider [phone] Allergies Active Allergy Reactions Criticality Noted Date Comments Midazolam Other 02/17/2018 Paradoxical reaction Medications amLODIPine (NORVASC) 10 mg tablet Take 1 tablet (10 mg total) by mouth 1 (one) time each day. 90 each 1 02/10/2024 Active losartan (COZAAR) 25 mg tablet Take 1 tablet (25 mg total) by mouth 1 (one) time each day. for 90 days 90 tablet 1 04/12/2024 Active Active Problems Problem Noted Date Diagnosed Date Primary hypertension 03/10/2024 ADHD (attention deficit hyperactivity disorder) 01/19/2024 Anxiety 01/19/2024 Overview (01/19/2024): Unsuccessful partial hospitalization Spring 2012 Mood disorder 01/19/2024 Bipolar disorder 05/17/2019 Overview (01/19/2024): Per beh healt form [place] Left ovarian cyst 01/21/2019 Depressive disorder 03/17/2018 Overview (01/19/2024): Was on risperdone Frequent UTI 03/17/2018 Lactose intolerance 03/17/2018 PTSD (post-traumatic stress disorder) 03/17/2018 Encounters Date Type Department Care Team Description 05/17/2024 8:50 AM EST - 05/17/2024 11:59 PM EST Hospital Encounter Radiology Department - [address] [phone] Extremity numbness; Blurred vision Discharge Disposition: Home or Self Care 05/06/2024 9:00 AM EST Office Visit Adult Medicine [address] [phone] Esther Graff PA Primary hypertension (Primary Dx); Fatigue, unspecified type; Extremity numbness; Tingling sensation; Blurred vision from Last 3 Months Immunizations Name Administration Dates Next Due DTaP (Infanrix) 6wks to less than 7yo ,12/20/1998,1997,09/20,1997 ZDaA-IBB-HRA (Pentacel) 2mo to less than 5yo 07/28/1998,1997,1997,07/18 Hepatitis B Pediatric (Enger ix B; Recombivax HB) to less than 20 yo 1997,1997,1997 IPV Inactivated polio (Ipol) 6wks and older 05/01/2001 Influenza Quadravalent, MDCK , 0.5ml, preservative free (Flucelvax) 6mo and older 12/22/2018 Influenza, Unspecified 02/17/2018 MMR, measles mumps and rubel la Live (Priorix; M-M-R II) 12mo and older 05/01/2001,05/01/1998 Meningococcal MCV4P 09/13/2011 Moderna SARS-CoV-2 COVID-19, mRNA, LNP-S, preservative free 06/04/2021 OPV 05/01/1998,1997,1997 Tdap Tetanus diptheria acell ular pertussis (Boostrix; Adacel) 7yo and older 12/02/2007 Varicella live (Varivax) 12m o and older 04/16/2013,05/01/1998 Surgical History Surgery Date Site/Laterality Comments OTHER SURGICAL HISTORY PROCEDURE: DENIES PREVIOUS SURGERY Medical History Medical History Date Comments ADHD (attention deficit hype ractivity disorder) DX:ADHD (attention deficit hyperactivity disorder) Mood disorder (CMS/HCC) DX:Mood disorder (HCC) Anxiety DX:Anxiety Depressive disorder 03/17/2018 DX:Depressiv e disorder; COMMENT: Was on risperdone Frequent UTI 03/17/2018 DX:Frequent UTI Lactose intolerance 03/17/2018 DX:Lactose i ntolerance PTSD (post-traumatic stress disorder) 03/17/2018 DX:PTSD (post-traumatic stress disorder) Family History Medical History Relation Name Comments Uterine cancer Aunt Maternal Throat Cancer Other: ADD/ADHD Father Eczema Asthma Maternal Grandfather Hyperli pidemia Hypertension Maternal Grandmother Coronary artery disease Mother's side Stroke Paternal Grandmother Diabete s Relation Name Status Comments Aunt Maternal Brother Alive adopted Father Alive Maternal Grandfather Alive Maternal Grandmother Alive Mother Alive Mother's side Paternal Grandfather Alive Paternal Grandmother Alive Sister 1 Alive Sister 2 Alive adopted Sister 3 Alive adopted Sister 4 Alive adopted Social History Tobacco Use Types Packs/Day Years Used Date Smoking Tobacco: Every Day Smokeless Tobacco: Never Tobacco Cessation:Ready to Q uit: Not Asked; Counseling Given: Not Answered Alcohol Use Standard Drinks/Week Comments Yes 0 (1 standard drink = 0.6 oz pur e alcohol) Housing Instability Answer Date Recorde d Are you worried that in the next 2 months you may not have stable housing? No 04/23/2024 Food Access & Nutrition Answer Date Rec orded Do you have access to a vari ety of food including fruits and vegetables? Yes 04/23/2024 Access to Healthcare Answer Date Record ed Within the last 3 months, ho w many times did you visit the emergency department for your medical care? 4 04/23/2024 Health Literacy Answer Date Recorded How often do you need to hav e someone help you when you read instructions, pamphlets, or other written material from your doctor or pharmacy? Never 04/23/2024 Caregiver: How often do you need to have someone help you when you read instructions, pamphlets, or other written material from your doctor or pharmacy? Not on file 04/23/2024 Financial Risk Answer Date Recorded How hard is it for you to pa y for the very basics like food, housing, medical care, and air conditioning / heating? Not very hard 04/23/2024 Transportation Answer Date Recorded Has the lack of transportati on kept you from meetings, work, or from getting things needed for daily living? No Has the lack of transportati on kept you from medical appointments or from getting medications? No 04/23/2024 Social Isolation Answer Date Recorded How often do you feel lonely or isolated from th ose around you? Never 04/23/2024 Food Risk Answer Date Recorded Within the past 12 months we worried whether our food would run out before we got money to buy more. Never true 04/23/2024 Within the past 12 months th e food we bought just didn't last and we didn't have money to get more. Never true 04/23/2024 Dependent Care Answer Date Recorded Do you need help finding or paying for care for your loved ones. For example, childcare center administrator or elderly care for an older adult? No 04/23/2024 Education Answer Date Recorded Do you think completing more education or training, like finishing a GED, going to college, or learning a trade, would be helpful for you? No 04/23/2024 Employment and Income Answer Date Recor ded During the last four weeks, have you been actively looking for work? No 04/23/2024 Living Situation Answer Date Recorded What is your living situation? 0 04/23/2024 Comments No Sex and Gender Information Value Date Recorded Sex Assigned at Not on file Legal Sex Female 2:17 PM EST Gender Identity Not on file Sexual Orientation Not on file Obstetrics History Last Filed Vital Signs Vital Sign Reading Time Taken Comments Blood Pressure 116/68 05/06/2024 8:47 AM EST Pulse 76 05/06/2024 8:47 AM EST Temperature 36.7 ??C (98 ??F) 05/06/2024 8:47 AM EST Respiratory Rate 12 05/06/2024 8:47 AM EST Oxygen Saturation 99% 03/24/2024 9:54 AM EST Inhaled Oxygen Concentration - - Weight 66.3 kg (146 lb 3.2 oz) 05/06/2024 8:47 A M EST Height 167.6 cm (5' 6 ) 05/06/2024 8:47 AM EST Body Mass Index 23.6 05/06/2024 8:47 AM EST Plan of Treatment Upcoming Encounters Date Type Department Care Team (Late st Contact Info) Description 08/04/2024 1:30 PM EDT Office Visit Adult Medicine [address] [phone] Siria Monzon MD [address] [place] [address] Health Maintenance Due Date Last Done Comments Pneumococcal Vaccine: Pediatrics (0 to 5 Years) and At-Risk Patients (6 to 64 Years) (1 of 2 - PCV) 2016 DTaP,Tdap,and Td Vaccines (7 - Td or Tdap) 12/01/2017 12/02/2007, 05/01/2001, 05/01/2001, Additional history exists Cervical Cancer Screening: Pap Smear 2018 HIV Screening 03/06/2022 Hepatitis C Screening 03/06/2022 COVID-19 Vaccine ( season) 2023 06/04/2021, 09/24/2020, 08/27/2020 Influenza Vaccine (Season Ended) 2024 12/22/2018, 02/17/2018, 04/16/2013, Additional history exists Hypertension/CHF/CAD Annual BMP Blood Test 01/07/2025 01/08/2024, 01/08/2024 Depression Screening 04/23/2025 04/23/2024 Social Influencers of Health Screening 04/23/2025 04/23/2024 Cholesterol Screening (Lipid Panel) 01/07/2029 01/08/2024, 01/08/2024 Hepatitis B Vaccines Completed 1997, 1997, 1997 HIB Vaccines Completed 07/28/1998, 07/07, 1997, Additional history exists IPV Vaccines Completed 05/01/2001, 07/07, 05/01/1998, Additional history exists MMR Vaccines Completed 05/01/2001, 05/01/1998 Meningococcal ACWY Vaccine Aged Out 09/13/2011 N o longer eligible based on patient's age to complete this topic Varicella Vaccines Completed 04/16/2013, 05/01/1998 HPV Vaccines Aged Out No longer eligi ble based on patient's age to complete this topic Hepatitis A Vaccines Aged Out No long er eligible based on patient's age to complete this topic Meningococcal B Vaccine Aged Out No l onger eligible based on patient's age to complete this topic RSV Immunization Patients Under 20 months Aged Out No longer eligible based on patient's age to complete this topic Procedures Procedure Name Priority Date/Time Associated Diagnosis Comments MR BRAIN WO CONTRAST Routine 05/17/2024 10:09 AM EST Extremity numbness Blurred vision CBC WITH AUTO DIFFERENTIAL Routine 05/10/2024 12:39 PM EST Fatigue, unspecified type TRIIODOTHYRONINE TOTAL Routine 12:39 PM EST Hypouricemia THYROID STIMULATING HORMONE Routine 05/10/2024 12:39 PM EST Hypouricemia VITAMIN D 25 HYDROXY Routine 05/10/2024 12:39 PM EST Fatigue, unspecified type HEMOGLOBIN A1C Routine 05/10/2024 12:39 PM EST Fatigue, unspecified type CBC AND DIFFERENTIAL Routine 05/10/2024 12:39 PM EST Fatigue, unspecified type IRON AND TIBC Routine 05/10/2024 12:39 PM EST Fatigue, unspecified type VITAMIN B12 Routine 05/10/2024 12:39 PM EST Fatigue, unspecified type Tingling sensation FERRITIN Routine 05/10/2024 12:39 PM EST Fatigue, unspecified type HM ANNUAL BMP BLOOD TEST Routine 01/08/2024 LIPID PANEL Routine 01/08/2024 from Last 3 Months or Most Recently Relevant to Health Maintenance Results * MR Brain wo Contrast (05/17/2024 10:09 AM EST) Anatomical Region Laterality Modality Head and Neck Magnetic Resonan ce 05/17/2024 10:4 3 AM EST Narrative 05/17/2024 10:49 AM EST MRI of the head without intravenous contrast. History blurred vision. Extremity numbness. Examination was performed on 1.5 Ashlee magnet utilizing routine protocol without administration of intravenous contrast. No prior studies are available for comparison. There is no evidence of midline shift, extra or intra-axial blood fluid collections. There is no visible masses or mass effect in the brain and cerebellum. Ventricular system is symmetric and normal in size. Fourth ventricle and basal cisterns are midline and patent. There is no focal areas of restricted diffusion. Paranasal sinuses and mastoid processes are unremarkable. CONCLUSIONS: Unremarkable nonenhanced MRI of the head. -------- FINAL REPORT -------- Dictated By: Hellen Jacobo Dictated Date: 05/17/2024 10:43 ET Assigned Physician: Hellen Jacobo Reviewed and Electronically Signed By: Hellen Jacobo Signed Date: 05/17/2024 10:49 ET Workstation ID: [id number] Transcribed By: Self Edit Transcribed Date: 05/17/2024 10:43 ET Procedure Note Hellen Jacobo MD - 05/17/2024 MRI of the head without intravenous contrast. History blurred vision. Extremity numbness. Examination was performed on 1.5 Ashlee magnet utilizing routine protocolwithout administration of intravenous contrast. No prior studies areavailable for comparison. There is no evidence of midline shift, extra or intra-axial blood fluidcollections. There is no visible masses or mass effect in the brain andcerebellum. Ventricular system is symmetric and normal in size. Fourthventricle and basal cisterns are midline and patent. There is no focalareas of restricted diffusion. Paranasal sinuses and mastoid processes are unremarkable. CONCLUSIONS: Unremarkable nonenhanced MRI of the head. -------- FINAL REPORT -------- Dictated By: Hellen Jacobo Dictated Date: 05/17/2024 10:43 ET Assigned Physician: Hellen Jacobo Reviewed and Electronically Signed By: Hellen Jacobo Signed Date: 05/17/2024 10:49 ET Workstation ID: [id number] Transcribed By: Self Edit Transcribed Date: 05/17/2024 10:43 ET us Esther BLAKE IMG MRI PROCEDURES Final Resul t * CBC auto differential (05/10/2024 12:39 PM EST) WBC 8.4 4.8 - 10.8 K/mcL LAB HEMETOLOGY METHOD 05/10/2024 2:49 PM [facility] RBC 4.20 3.80 - 4.80 M/mcL LAB HEMETOLOGY METHOD 05/10/2024 2:49 PM [facility] Hemoglobin 12.8 11.5 - 16.0 g/dL LAB HEMETOLOGY METHOD 05/10/2024 2:49 PM [facility] Hematocrit 37.9 35.0 - 47.0 % LAB HEMETOLOGY METHOD 05/10/2024 2:49 PM [facility] MCV 90.9 79.0 - 98.0 FL LAB HEMETOLOGY METHOD 05/10/2024 2:49 PM [facility] MCH 30.7 27.0 - 32.0 pcg LAB HEMETOLOGY METHOD 05/10/2024 2:49 PM [facility] MCHC 33.8 32.0 - 37.0 g/dL LAB HEMETOLOGY METHOD 05/10/2024 2:49 PM [facility] RDW 12.4 11.0 - 15.0 % LAB HEMETOLOGY METHOD 05/10/2024 2:49 PM [facility] Platelets 292 130 - 400 K/mcL LAB HEMETOLOGY METHOD 05/10/2024 2:49 PM [facility] MPV 10.9 7.0 - 11.0 FL LAB HEMETOLOGY METHOD 05/10/2024 2:49 PM [facility] NRBC 0.0 <1.0 % LAB HEMETOLOGY METHOD 05/10/2024 2:49 PM [facility] NRBC Absolute 0.00 <0.10 K/mcL LAB HEMETOLOGY METHOD 05/10/2024 2:49 PM [facility] Neutrophils Relative 49.1 % LAB HEMETOLOGY METHOD 05/10/2024 2:49 PM [facility] Lymphocytes Relative 39.3 % LAB HEMETOLOGY METHOD 05/10/2024 2:49 PM [facility] Monocytes Relative 7.8 % LAB HEMETOLOGY METHOD 05/10/2024 2:49 PM [facility] Eosinophils Relative 2.8 % LAB HEMETOLOGY METHOD 05/10/2024 2:49 PM [facility] Basophils Relative 0.8 % LAB HEMETOLOGY METHOD 05/10/2024 2:49 PM [facility] Immature Granulocytes Relative 0.2 % LAB HEMETOLOGY METHOD 05/10/2024 2:49 PM [facility] Neutrophils Absolute 4.13 1.50 - 7.00 K/mcL LAB HEMETOLOGY METHOD 05/10/2024 2:49 PM [facility] Lymphocytes Absolute 3.31 1.00 - 5.00 K/mcL LAB HEMETOLOGY METHOD 05/10/2024 2:49 PM [facility] Monocytes Absolute 0.66 0.20 - 1.00 K/mcL LAB HEMETOLOGY METHOD 05/10/2024 2:49 PM [facility] Eosinophils Absolute 0.24 0.00 - 0.50 K/mcL LAB HEMETOLOGY METHOD 05/10/2024 2:49 PM [facility] Basophils Absolute 0.07 0.00 - 0.20 K/mcL LAB HEMETOLOGY METHOD 05/10/2024 2:49 PM [facility] Immature Granulocytes Absolute 0.02 0.00 - 0.03 K/mcL LAB HEMETOLOGY METHOD 05/10/2024 2:49 PM EST [facility] Blood Venous blood specimen / Unknown Venipuncture / Unknown 05/10/2024 12:39 PM EST 05/10/2024 12:39 PM EST Esther Graff [place] LAB BLOOD ORDERABLES Final Res ult Performing Organization Address City/[facility]/ZIP Co de Phone Number [facility] [address] [place] [address], [place] [phone] * Iron and TIBC (05/10/2024 12:39 PM EST) Pathologist [facility] Iron 98 40 - 150 mcg/dL LAB CHEMISTRY METHOD 05/10/2024 6:27 PM EST [facility] TIBC 288 250 - 450 mcg/dL LAB CHEMISTRY METHOD 05/10/2024 6:27 PM EST [facility] Iron Saturation 34 15 - 50 % LAB CHEMISTRY METHOD 05/10/2024 6:27 PM EST [facility] Blood Venous blood specimen / Unknown Venipuncture / Unknown 05/10/2024 12:39 PM EST 05/10/2024 12:39 PM EST Esther BLAKE LAB BLOOD ORDERABLES Final Res ult Performing Organization Address City/[facility]/ZIP Co de Phone Number [facility] [address] [place] [address], [place] [phone] * Vitamin D 25 hydroxy (05/10/2024 12:39 PM EST) Vit D, 25-Hydroxy 33.4 30.0 - 80.0 ng/mL LAB CHEMISTRY METHOD 05/10/2024 6:53 PM EST [facility] Blood Venous blood specimen / Unknown Venipuncture / Unknown 05/10/2024 12:39 PM EST 05/10/2024 12:39 PM EST Esther BLAKE LAB BLOOD ORDERABLES Final Res ult Performing Organization Address City/[facility]/ZIP Co de Phone Number [facility] [address] [place] [address], [place] [phone] * Triiodothyronine total (05/10/2024 12:39 PM EST) Pathologist [facility] T3, Total 111.79 60.00 - 181.00 ng/dL LAB CHEMISTRY METHOD 05/10/2024 6:37 PM EST [facility] Blood Venous blood specimen / Unknown Venipuncture / Unknown 05/10/2024 12:39 PM EST 05/10/2024 12:39 PM EST Toribio Carbajal MD LAB BLOOD ORDERABLES Final Resul t Performing Organization Address [facility]/ZIP Co de Phone Number [facility] [address] [place] [address], [place] [phone] * Thyroid stimulating hormone (05/10/2024 12:39 PM EST) [facility] TSH 0.53 0.40 - 4.00 mcIU/mL LAB CHEMISTRY METHOD 05/10/2024 6:33 PM EST [facility] Blood Venous blood specimen / Unknown Venipuncture / Unknown 05/10/2024 12:39 PM EST 05/10/2024 12:39 PM EST Toribio Carbajal MD LAB BLOOD ORDERABLES Final Resul t Performing Organization Address City/[facility]/ZIP Co de Phone Number [facility] [address] [place] [address], [place] [phone] * Hemoglobin A1c (05/10/2024 12:39 PM EST) Pathologist [facility] Hemoglobin A1C 5.0 <6.5 % LAB CHEMISTRY METHOD 05/10/2024 9:47 PM EST [facility] Mean Bld Glu Estim. 97 mg/dL LAB CHEMISTRY METHOD 05/10/2024 9:47 PM EST [facility] Blood Venous blood specimen / Unknown Venipuncture / Unknown 05/10/2024 12:39 PM EST 05/10/2024 12:39 PM EST Esther BLAKE LAB BLOOD ORDERABLES Final Res ult Performing Organization Address City/[facility]/ZIP Co de Phone Number [facility] [address] [place] [address], [place] [phone] * Ferritin (05/10/2024 12:39 PM EST) [facility] Ferritin 104 8 - 252 ng/mL LAB CHEMISTRY METHOD 05/10/2024 6:48 PM EST [facility] Blood Venous blood specimen / Unknown Venipuncture / Unknown 05/10/2024 12:39 PM EST 05/10/2024 12:39 PM EST Esther BLAKE LAB BLOOD ORDERABLES Final Res ult Performing Organization Address [facility]/ZIP Co de Phone Number [facility] [address] [place] [address], [place] [phone] * Vitamin B12 (05/10/2024 12:39 PM EST) [facility] Vitamin B-12 313 250 - 900 pcg/mL LAB CHEMISTRY METHOD 05/10/2024 6:48 PM EST [facility] Blood Venous blood specimen / Unknown Venipuncture / Unknown 05/10/2024 12:39 PM EST 05/10/2024 12:39 PM EST Esther BLAKE LAB BLOOD ORDERABLES Final Res ult Performing Organization Address City/[facility]/ZIP Co de Phone Number [facility] [address] [place] [address], * Annual BMP Blood Test (01/08/2024) Annual BMP Blood Test abstracted Historical Provider HEALTH MAINTENANCE Final Result * (ABNORMAL) Lipid panel (01/08/2024) LDL/HDL Ratio 4 0 - 4 Triglycerides 73 0 - 150 mg/dL Cholesterol 172 0 - 200 mg/dL HDL 47 >=40 mg/dL LDL Cholesterol 111(A) 0 - 100 mg/dL Blood Venous blood specimen / Unknown Historical Provider LAB BLOOD ORDERABLES Vivian l Result from Last 3 Months or Most Recently Relevant to Health Maintenance Insurance [facility] Care Teams Proof Plate Maker Relationship Specialty Start Date End Date Siria Monzon MD [address] [place] [id number] PCP - General Internal Medicine 03/23/24
--- OUTSIDE RECORDS SUMMARY | 2024-07-13 19:07 | XMS_ITS | Encounter Summary ---
Author Organization [facility] Address [address] [place] [address] Phone Care Team Providers Care Virtualization Consultant Name Role Phone Unavailable Primary Care Provider Unavailabl e Encounter Details Date Type Department Care Team (Late st Contact Info) Description 08/17/2012 Documentation [facility] Family Medicine [address] [place] [address] Family Medicine, Physician [address] [place], [place] [id number] Social History Tobacco Use Types Packs/Day Years [...]
--- OUTSIDE RECORDS SUMMARY | 2024-07-13 19:07 | XMS_ITS | Encounter Summary ---
Author Organization [facility] Address [address] [place] [address] Phone Care Team Providers Care Resistance Brazer Name Role Phone Unavailable Primary Care Provider Unavailabl e Encounter Details Date Type Department Care Team (Late st Contact Info) Description 07/03/2010 Documentation [facility] [place] [address] [place] [address] Family Medicine, Physician [address] [place], [place] [phone] Social History Tobacco Use Types Packs/Day Years [...]
--- OUTSIDE RECORDS SUMMARY | 2024-07-13 19:07 | XMS_ITS | Encounter Summary ---
Author Organization [facility] Address [address] [place] [address] Phone Care Team Providers Care Dredgemaster Name Role Phone Unavailable Primary Care Provider Unavailabl e Encounter Details Date Type Department Care Team (Late st Contact Info) Description 06/07/2009 Documentation [facility] Family Medicine [address] [place] [address] Family Medicine, Physician [address], [place] [phone] Social History Tobacco Use Types Packs/Day Years [...]
--- OUTSIDE RECORDS SUMMARY | 2024-07-13 19:07 | XMS_ITS | Encounter Summary ---
Author Organization [facility] Address [address] [place] [address] Phone Care Team Providers Care Title Insurance Agent Name Role Phone Unavailable Primary Care Provider Unavailabl e Encounter Details Date Type Department Care Team (Late st Contact Info) Description 11/12/2010 Documentation [facility] [place] [address] [place] [address] Family Medicine, Physician [address] [place], [place] [address] Social History Tobacco Use Types Packs/Day Years [...]
--- OUTSIDE RECORDS SUMMARY | 2024-07-13 19:07 | XMS_ITS | Encounter Summary ---
Author Organization [facility] Address [address] [place] [address] Phone Care Team Providers Care Final Inspector And Tester Name Role Phone Unavailable Primary Care Provider Unavailabl e Encounter Details Date Type Department Care Team (Late st Contact Info) Description 11/21/2016 Conversion Encounter [facility] - [address] [phone] Social History Tobacco Use Types Packs/Day Years Used Date Smoking Tobacco: Never Comments:Never smoker Comments Unknown Sex and Gender Information Value Date Recorded Sex Assigned at Not on file Legal Sex Female 5:05 PM EDT Gender Identity Not on file Sexual Orientation Not on file documented as of this encounter Plan of Treatment Not on file documented as of this encounter Visit Diagnoses Not on filedocumented in this encounter
--- OUTSIDE RECORDS SUMMARY | 2024-07-13 19:07 | XMS_ITS | Clinical Summary ---
Author Organization [facility] Address [address] [place] [address] Phone Care Team Providers Care Computer Security Coordinator Name Role Phone Unavailable Primary Care Provider Unavailabl e Immunizations Immunization Administration Dates Next Due DTP 1997,1997,1997 DTaP 5 05/01/2001,12/20/1998 Hep B, ped/adol 1997,1997,1997 Hib (PRP-T) 07/28/1998, 8,1997,07/18 IPV 05/01/2001,1997,1997 Influenza, injectable, quadr ivalent, preservative free 04/16/2013 Influenza, intranasal, trivalent 03/23/2010 MMR 05/01/2001,05/01/1998 Meningococcal Conj (Menactra) MCV4P 09/13/2011 OPV 05/01/1998 PPD Test 06/17/2016 Tdap 12/02/2007 Varicella 04/16/2013,05/01/1998 Family History Relation Name Status Comments Father Father: Eczema, ADD/ADHD Maternal Grandfather Materna l grandfather: Hyperlipidemia, Asthma Maternal Grandmother Materna l aunt: Cancer, uterine, Cancer, throat Mother Alive Mother: Alive a nd well Other Family history of Heart disease, Family history of Strabismus, No family history of Thrombophilia, No family history of CVA (Stroke), Family history of Cancer - br, Family history of Obesity, No family history of Sudden /[place] under age 55, Family history of Dental caries, Family history of Diabetes mellitus, No family history of *Thrombophilia, Family history of Hyperlipidemia Paternal Grandmother Elizabeth brito grandmother: Diabetes mellitus Social History Tobacco Use Types Packs/Day Years Used Date Smoking Tobacco: Never Comments:Never smoker Comments Unknown Sex and Gender Information Value Date Recorded Sex Assigned at Not on file Legal Sex Female 5:05 PM EDT Gender Identity Not on file Sexual Orientation Not on file Last Filed Vital Signs Vital Sign Reading Time Taken Comments Blood Pressure 113/62 10/26/2015 12:00 AM EDT Pulse 83 10/26/2015 12:00 AM EDT Temperature 37.1 ??C (98.7 ??F) 10/26/2015 12:00 AM E DT Respiratory Rate - - Oxygen Saturation - - Inhaled Oxygen Concentration - - Weight 56.4 kg (124 lb 6.4 oz) 10/26/2015 12:00 AM EDT Height 166.4 cm (5' 5.5 ) 10/26/2015 12:00 AM ED T Body Mass Index 20.39 10/26/2015 12:00 AM EDT Plan of Treatment Health Maintenance Due Date Last Done Comments DTaP,Tdap,and Td Vaccines (7 - Td or Tdap) 12/01/2017 12/02/2007, 05/01/2001, 12/20/1998, Additional history exists Influenza Vaccines (#1) 2023 04/16/2013, 03/23 COVID-19 Vaccine ( season) 2023 Hepatitis B Vaccines Completed 1997, 1997, 1997 HIB Vaccines Completed 07/28/1998, 11/06, 1997, Additional history exists IPV Vaccines Completed 05/01/2001, 04/08, 1997, Additional history exists MMR Vaccines Completed 05/01/2001, 05/01/1998 Meningococcal Vaccine Aged Out 09/13/2011 No jose alberto dimitris eligible based on patient's age to complete this topic Varicella Vaccines Completed 04/16/2013, 05/01/1998 HPV Vaccines Aged Out No longer eligi ble based on patient's age to complete this topic Hepatitis A Vaccines Aged Out No long er eligible based on patient's age to complete this topic Men B Vaccine Aged Out No longer elig ible based on patient's age to complete this topic Pneumococcal Vaccine Aged Out No long er eligible based on patient's age to complete this topic Procedures * Due to [facility] law, this organization might not be sharing sensitive test results. Procedure Name Priority Date/Time Associated Diagnosis Comments CHLAMYDIA AND GONORRHEA, AMPLIFIED Routine 06/01/2014 3:33 PM EST from Last 3 Months or Most Recently Relevant to Health Maintenance Results * Due to [place] [employer] law, this organization might not be sharing sensitive test results. * Chlamydia and Gonorrhoea, Amplified (06/01/2014 3:33 PM EST) URINE GC AMP PROBE NEGATIVE F [facility] Comment: No Neisseria Gonorrhoeae RNA detected in this patient's sample REFERENCE VALUE: NEGATIVE NOTE: This test uses cyber intel planner-mediated amplification method to detect rRNA from C.Trachomatis and N.Gonorrhoeae. A negative result does not preclude infection. In the case of a negative urine result, testing of an endocervical(female) or urethral(male) specimen is recommended if there is high clinical suspicion of infection. The performance characteristics of this test have not been evaluated in children. The Aptima Combo2 assay is not intended for the evaluation of suspected sexual abuse or for other medico-legal indications. The ordering provider should assess if the patient had consensual sex without risk of sexual abuse. Consult the [facility] if needed. Contact phone number . Therapeutic failure or success cannot be determined with the Aptima Combo2 assay since nucleic acid may persist following appropriate antimicrobial therapy. The Centers for Disease Control and Prevention (CDC) recommends confirmatory retesting using culture or a different nucleic acid amplification test when positive results occur, if indicated. Testing performed or reported by [facility], a Service of [facility], [address] [place] [id number] Juan Sanchez MD, PhD, Volleyball Assistant Coach URINE CHLAMYDIA AMP PROBE NEGATIVE [facility] Comment: No Chlamydia Trachomatis RNA detected in this patient's sample REFERENCE VALUE: NEGATIVE 06/01/2014 3:33 PM EST [facility] - 06/01/2014 3:33 PM EST URINE CHLAMYDIA GC AMP PROBE us Avery Zavala MD LAB MICROBIOLOGY - GENERAL ORDER MOHAMUD Final Result [facility] [address] [place] [address], [place] from Last 3 Months or Most Recently Relevant to Health Maintenance
--- OUTSIDE RECORDS SUMMARY | 2024-07-13 19:07 | XMS_ITS | Encounter Summary ---
Author Organization [facility] Address [address] [place] [address] Phone Care Team Providers Care Commercial Carpet Installer Name Role Phone Unavailable Primary Care Provider Unavailabl e Encounter Details Date Type Department Care Team (Late st Contact Info) Description 06/07/2009 Documentation [facility] [place] Family Medicine [address] [place] [address] Family Medicine, Physician [address] [place], [place] [phone] Social History Tobacco Use Types Packs/Day Years [...]
--- OUTSIDE RECORDS SUMMARY | 2024-07-13 19:07 | XMS_ITS | Encounter Summary ---
Author Organization [facility] Address [address] [place] [address] Phone Care Team Providers Care Washer Assembler Name Role Phone Unavailable Primary Care Provider Unavailabl e Encounter Details Date Type Department Care Team (Late st Contact Info) Description 07/03/2010 Documentation [facility] [place] [address] [place] [address] Family Medicine, Physician [address] [place], [place] [phone] Social History Tobacco Use Types Packs/Day Years [...]
--- OUTSIDE RECORDS SUMMARY | 2024-07-13 19:07 | XMS_ITS | Encounter Summary ---
Author Organization [facility] Address [address] [place] [address] Phone Care Team Providers Care Meat Molder Name Role Phone Unavailable Primary Care Provider Unavailabl e Encounter Details Date Type Department Care Team (Late st Contact Info) Description 07/03/2012 Documentation [facility] [place] Family Medicine [address] [place] [address] Family Medicine, Physician [address], [place] [phone] Social History Tobacco Use Types Packs/Day Years [...]
[2024-07-14 20:29] LABS: A. Phagocytphilium DNA,RT-PCR NOT DETECTED (NOT DETECTED); Babesia Microti DNA, RT-PCR NOT DETECTED (NOT DETECTED); Borrelia Miyamotoi,DNA RT-PCR NOT DETECTED (NOT DETECTED); E.Chaffeensis DNA RT-PCR NOT DETECTED (NOT DETECTED); Lyme(Borrelia ssp)DNA RT-PCR NOT DETECTED (NOT DETECTED)
== END 2024-07-13 17:55 | disposition home or self-care (01) ==
PROVIDERS: Physician Assistant; Emergency Provider Emergency Medicine; PCP Internal Medicine
DX: R07.9 Chest pain, unspecified (principal); M25.562 Pain in left knee; M25.561 Pain in right knee; R05.9 Cough, unspecified; R06.02 Shortness of breath; Z03.818 Encounter for observation for suspected exposure to other biological agents ruled out; I10 Essential (primary) hypertension; Z79.899 Other long term (current) drug therapy
CPT/HCPCS: 0241U; 71046; 80053; 83690; 84484; 84702; 85025; 85379; 85610; 85652; 86140; 87468; 87469; 87478; 87484; 87798; 93005; 99284; 99285

== ENCOUNTER → 2024-07-13 15:24 | Outpatient (BNV) | payer OTHER, SELFPAY | PROVIDERS: Emergency Provider Emergency Medicine; PCP Internal Medicine; Visit Provider Internal Medicine Cardiovascular Disease | DX: R07.9 Chest pain, unspecified (principal) | CPT/HCPCS: 93010 ==

== ENCOUNTER → 2024-07-13 15:37 | Outpatient (BNV) | payer OTHER, SELFPAY | PROVIDERS: PCP Internal Medicine; Visit Provider Radiology Diagnostic Radiology | DX: R07.9 Chest pain, unspecified (principal) | CPT/HCPCS: 71046 ==

== ENCOUNTER 2024-11-02 15:38 | Emergency (ER) | payer OTHER, SELFPAY ==
--- NOTE | 2024-11-02 15:41 | ED.GENADULT ---
HPI - General Adult General Chief complaint: Eye Problems Stated complaint: Blurry vision Related Data Previous Rx's ?Medication ?Instructions ?Recorded lisinopril 5 mg tablet 5 mg PO DAILY #14 tabs 12/27/23 phenazopyridine 200 mg tablet 200 mg PO TID PRN pain 6 doses #6 06/22/24 (Pyridium) tabs Allergies Allergy/AdvReac Type Severity Reaction Status Date / Time midazolam (From VERSED) Allergy Severe VIOLENT Verified 11/02/24 15:45 versed Allergy Unknown unsure Uncoded 11/02/24 15:45 reactive as child [facility]LY [facility], [facility] Social History Social History Substance Use Type: Marijuana Advance Directives: No Advance Directives Information Provided: No Do you have a plan to hurt others: No Plan Physical Exam ED Vital Signs: Vital Signs - 24 hr 11/02/24 15:42 Temperature 98 F Pulse Rate 85 Respiratory Rate 19 Blood Pressure 123/64 Pulse Oximetry 98 Oxygen Delivery Method Room Air BMI result Body Mass Index 21.8 Course Course Course Narrative: This is an RME performed by José Manuel Reaves CNP: Additional HPI, ROS, PE not included below will be deferred to primary provider. Patient is a 29-year-old female who presents emergency department for evaluation. She reports 1 week ago she was seen at urgent care was being evaluated for redness and swelling to the bilateral eyes. She was given a prescription for cephalexin which she has completed. She feels as though symptoms are worsening (redness and swelling), endorsing blurry vision, painful eye movements, diffuse constant headache, and dizziness. Denies any active drainage from the eyes. No contact lenses. Exam: No visual or his erythema or willing, conjunctiva and sclera are normal. EOMI. no focal neuro deficits Reevaluation(s) Reevaluation #1: LWCT Medical Decision Making Lab Data 11/02/24 16:02 11/02/24 16:02 Labs: Lab Results 11/02/24 Range/Units 16:02 WBC 7.7 (4.8-10.8) X10*3/uL RBC 4.44 (4.20-5.50) X10*6/uL Hgb 13.4 (12.0-16.0) g/dl Hct 37.7 (37.0-47.0) % MCV 84.9 (80.0-98.0) fL MCH 30.2 (27.0-33.0) pg MCHC 35.5 H (31.0-35.0) g/dl RDW 11.9 (11.0-16.0) % Plt Count 268 (160-400) X10*3/uL MPV 10.1 (9.4-12.3) fL Immature Gran % (Auto) 0.3 (0.0-0.4) % Neut % (Auto) 58.2 (45-73) % Lymph % (Auto) 32.4 (20-40) % [place] % (Auto) 7.2 (2-11) % Eos % (Auto) 1.2 (0-4) % Baso % (Auto) 0.7 (0-2) % Lymph # (Auto) 2.5 (1.2-4.9) X10*3/uL [place] # (Auto) 0.6 (0.1-1.2) X10*3/uL Eos # (Auto) 0.1 (0.0-0.4) X10*3/uL Baso # (Auto) 0.1 (0.0-0.2) X10*3/uL Abs Immat Gran (auto) 0.02 (0.00-0.03) X10*3/uL Absolute Neuts (auto) 4.5 (2.0-8.3) x10*3/uL Absolute Nucleated RBC 0.000 (0.0-0.012) X10*3/uL Nucleated RBC % (auto) 0.0 (0.0-0.2) /100WBC Sodium 141 (135-145) mmol/L Potassium 3.5 (3.3-5.1) mmol/L Chloride 107 (96-108) mmol/L Carbon Dioxide 23 (22-29) mmol/L Anion Gap 15 (12-20) BUN 7 L (9-16) mg/dL Creatinine 0.62 (0.5-1.4) mg/dL Estim Creat Clear Calc 127.6 Estimated GFR > 60 Random Glucose 83 (60-115) mg/dL Calcium 9.1 (8.4-10.2) mg/dL Total Bilirubin 3.1 H (0.0-1.0) mg/dL AST 20 (5-31) U/L ALT 21 (0-31) U/L Alkaline Phosphatase 36 L (39-117) U/L Total Protein 6.7 (6.5-8.0) g/dL Albumin 4.7 (3.5-5.0) g/dL TSH 0.34 (0.32-4.0) uIU/mL Influenza Type A (PCR) NEGATIVE (Negative) Influenza Type B (PCR) NEGATIVE (Negative) RSV RNA Qual (PCR) NEGATIVE (Negative) SARS-CoV-2 RNA (RT-PCR) NEGATIVE (Negative) Discharge Plan Discharge Clinical Impression: Diagnosis unknown Patient Disposition: Left W/O Completing Treatment Prescriptions: No Action lisinopril 5 mg tablet 5 mg PO DAILY Qty: 14 0RF phenazopyridine [Pyridium] 200 mg tablet 200 mg PO TID PRN (Reason: pain) Qty: 6 0RF Discharge Date/Time: 11/02/24 18:45
[2024-11-02 15:42] VITALS: BP 123/64; PULSE 85; RESP 19; TEMP 36.6; O2SAT 98; BMI 21.8
--- NOTE | 2024-11-02 15:46 | ECG_ITS ---
Test Reason : dizziness Blood Pressure : */* mmHG Vent. Rate : 73 BPM Atrial Rate : 73 BPM P-R Int : 112 ms QRS Dur : 94 ms QT Int : 358 ms P-R-T Axes : 11 69 39 degrees QTcB Int : 394 ms Normal sinus rhythm with sinus arrhythmia Normal ECG When compared with ECG of 13-Jul-2024 15:24, No significant change was found Referred By: Greta Reaves Electronically Signed By: FIDEL BAIG MD
[2024-11-02 16:12] LABS: MANUAL DIFF FLAG NO
[2024-11-02 16:13] LABS: Hematocrit 37.7 % (37.0-47.0); Hemoglobin 13.4 g/dl (12.0-16.0); Imm Gran Abs Auto 0.02 X10*3/uL (0.00-0.03); Imm Gran Pct Auto 0.3 % (0.0-0.4); Lymphocytes Absolute Auto 2.5 X10*3/uL (1.2-4.9); Mean Corpuscular HGB Conc 35.5 g/dl (31.0-35.0); Mean Corpuscular Hemoglobin 30.2 pg (27.0-33.0); Mean Corpuscular Volume 84.9 fL (80.0-98.0); NRBC Abs Auto 0.000 X10*3/uL (0.0-0.012); NRBC Pct Auto 0.0 /100WBC (0.0-0.2); Platelet Count 268 X10*3/uL (160-400); Red Blood Count 4.44 X10*6/uL (4.20-5.50); White Blood Count 7.7 X10*3/uL (4.8-10.8)
[2024-11-02 16:34] LABS: Alanine Aminotransferase 21 U/L (0-31); Albumin Level 4.7 g/dL (3.5-5.0); Alkaline Phosphatase 36 U/L (39-117); Anion Gap 15 (12-20); Aspartate Amino Transferase 20 U/L (5-31); Blood Urea Nitrogen 7 mg/dL (9-16); Calcium 9.1 mg/dL (8.4-10.2); Carbon Dioxide 23 mmol/L (22-29); Chloride 107 mmol/L (96-108); Creatinine Clr Calc Pharmacy 127.6; Estimated Glomerular Filt Rate > 60; Potassium 3.5 mmol/L (3.3-5.1); Sodium 141 mmol/L (135-145); Total Protein 6.7 g/dL (6.5-8.0)
--- OUTSIDE RECORDS SUMMARY | 2024-11-02 16:46 | XMS_ITS | Clinical Summary ---
Author Organization [facility] Address [address] [place] [address] Care Team Providers Care Bakery Assistant Name Role Phone Siria Monzon MD Primary Care Provider [phone] Allergies Active Allergy Reactions Criticality Noted Date Comments Midazolam Other 02/17/2018 Paradoxical reaction Medications amLODIPine (NORVASC) 10 mg tablet TAKE 1 TABLET BY MOUTH 1 TIME EACH DAY. 90 tablet 1 07/26/2024 Active losartan (COZAAR) 25 mg tablet Take 1 tablet (25 mg total) by mouth 1 (one) time each day. for 90 days 90 tablet 1 09/14/2024 Active Active Problems Problem Noted Date Diagnosed Date Primary hypertension 03/10/2024 ADHD (attention deficit hyperactivity disorder) 01/19/2024 Anxiety 01/19/2024 Overview (01/19/2024): Unsuccessful partial hospitalization Spring 2012 Mood disorder ([facility] V24) 01/19/2024 Bipolar disorder ([facility] V24, [facility] V28) 05/08 Overview (01/19/2024): Per beh healt form [facility] [place] Left ovarian cyst 01/21/2019 Depressive disorder 03/17/2018 Overview (01/19/2024): Was on risperdone Frequent UTI 03/17/2018 Lactose intolerance 03/17/2018 PTSD (post-traumatic stress disorder) 03/17/2018 Immunizations Name Administration Dates Next Due DTaP (Infanrix) 6wks to less than 7yo ,12/20/1998,1997,09/20,1997 [id number] (Pentacel) 2mo to less than 5yo 07/28/1998,1997,1997,07/18 [...] DX:ADHD (attention deficit hyperactivity disorder) Mood disorder (CMS/HCC V24) DX:M ood disorder ([facility]) Anxiety DX:Anxiety Depressive disorder 03/17/2018 DX:Depressiv e [...] care for your loved ones. For example, early childhood education instructor or elderly care for an older adult? [...] 76 05/06/2024 8:47 AM EST Temperature 36.7 C (98 F) 05/06/2024 8:47 AM EST Respiratory Rate 12 [...] Care Team (Late st Contact Info) Description 12/21/2024 2:00 PM EDT Office Visit Adult Medicine [address] [phone] Siria Monzon MD [address] [place] [address] Health Maintenance Due Date Last Done Comments Pneumococcal Vaccine: Pediatrics (0 to 5 Years) and At-Risk Patients (6 to 49 Years) (1 of 2 - PCV) 2016 DTaP,Tdap,and Td Vaccines (7 - Td or Tdap) 12/01/2017 12/02/2007, 05/01/2001, 05/01/2001, Additional history exists Cervical Cancer Screening: Pap Smear 2018 HIV Screening 03/06/2022 Hepatitis C Screening 03/06/2022 COVID-19 Vaccine ( season) 2023 06/04/2021, 09/24/2020, 08/27/2020 Influenza Vaccine (#1) 2024 9, 02/17/2018, 04/16/2013, Additional history exists Hypertension/CHF/CAD Annual BMP Blood Test 01/07/2025 01/08/2024, 01/08/2024 Social Influencers of Health Screening 04/23/2025 04/23/2024 [...] this topic Varicella Vaccines Completed 04/16/2013, 05/01/1998 Depression Screening Completed 04/23/2024 HPV Vaccines Aged Out No longer eligi [...] Procedure Name Priority Date/Time Associated Diagnosis Comments ECHO 10/21/2024 ANNUAL BMP BLOOD TEST Routine 01/08/2024 LIPID PANEL Routine 01/08/2024 from Last 3 Months or Most Recently Relevant to Health Maintenance Results * Echo (10/21/2024) Anatomical Region Laterality Modality Other us Provider Maral Onbase CV HISTORICAL CONV PROCE DURES Final Result * Annual BMP Blood Test (01/08/2024) Annual [...] Most Recently Relevant to Health Maintenance Insurance [employer] Care Teams Bakery Assistant Relationship Specialty Start Date End Date Siria Monzon MD [address] [place] [phone] PCP - General Internal Medicine 03/23/24
--- OUTSIDE RECORDS SUMMARY | 2024-11-02 16:46 | XMS_ITS | Encounter Summary ---
Author Organization [facility] Address [address] [place] [address] [place] [address] Phone Care Team Providers Care Recording Artist Name Role Phone Siria Monzon MD Primary Care Provider [phone] Encounter Details Date Type Department Care Team (Late st Contact Info) Description 05/04/2024 Procedure Pass Echo Lab [address] [place] [address] Social History Tobacco Use Types Packs/Day Years Used Date Smoking Tobacco: Every Day Cigarettes Smokeless Tobacco: Never Education Answer Date Recorded Are you interested in more education? Not on delaney e 08/02/2022 Are you concerned about learning? Not on file 08/02/2022 No 08/02/2022 No 08/02/2022 Digital Access Answer Date Recorded No 08/30/2022 No 08/30/2022 Reliable internet access at home? Not on file 08/30/2022 Device with a working camera? Not on file Comments Unknown Sex and Gender Information Value Date Recorded Sex Assigned at Not on file Legal Sex Female 8:49 PM EDT Gender Identity Not on file Sexual Orientation Not on file documented as of this encounter Plan of Treatment Upcoming Encounters Date Type Department Care Team (Late st Contact Info) Description 11/04/2024 4:00 PM EDT Office Visit [facility] [address] [place] [address] Abner Rajan, [address] [address] 12/16/2024 3:45 PM EDT Office Visit [facility] [address], [address] [place] [address] Dorian Alcaraz MD [address] [place] [address], [address] [place] [address] [email or web address] documented as of this encounter Visit Diagnoses Not on filedocumented in this encounter Care Teams Recording Artist Relationship Specialty Start Date End Date Siria Monzon MD [address] [place] [phone] PCP - General Internal Medicine 02/02/24 documented as of this encounter Additional Source Comments The information contained in this document represents components of the legal health record. It is not the complete legal health record.[facility]
--- OUTSIDE RECORDS SUMMARY | 2024-11-02 16:46 | XMS_ITS | Encounter Summary ---
Author Organization [facility] Address [address] [place] [address] Phone Care Team Providers Care Health Informatics Instructor Name Role Phone Unavailable Primary Care Provider Unavailabl e Encounter Details Date Type Department Care Team (Late st Contact Info) Description 07/03/2010 Documentation [facility] [place] [address] [place] [address] Family Medicine, Physician [address], [place] [address] Social History Tobacco Use Types Packs/Day Years [...]
[2024-11-02 16:50] LABS: Resp Syncy Virus RNA Qual PCR NEGATIVE (Negative); SARS COV2 PCR INHOUSE NEGATIVE (Negative)
== END 2024-11-02 18:45 | disposition left against medical advice (07) ==
PROVIDERS: Nurse Practitioner Family; Emergency Provider Emergency Medicine; PCP Internal Medicine
DX: H53.8 Other visual disturbances (principal); H57.13 Ocular pain, bilateral; Z03.818 Encounter for observation for suspected exposure to other biological agents ruled out; F12.90 Cannabis use, unspecified, uncomplicated; R51.9 Headache, unspecified; R42 Dizziness and giddiness
CPT/HCPCS: 80053; 84443; 85025; 87637; 93005; 99283

== ENCOUNTER → 2024-11-02 15:46 | Outpatient (BNV) | payer OTHER, SELFPAY | PROVIDERS: Emergency Provider Emergency Medicine; PCP Internal Medicine; Visit Provider Internal Medicine Cardiovascular Disease | DX: R42 Dizziness and giddiness (principal) | CPT/HCPCS: 93010 ==

== ENCOUNTER 2025-02-15 06:22 | Emergency (ER) | payer OTHER, SELFPAY ==
[2025-02-15 06:24] VITALS: BP 137/73; PULSE 73; RESP 20; TEMP 36.6; O2SAT 100; BMI 21.0
--- OUTSIDE RECORDS SUMMARY | 2025-02-15 06:48 | XMS_ITS | Encounter Summary ---
Author Organization [facility] Address [address] [place] [address] Phone Care Team Providers Care Paint And Table Edger Name Role Phone Unavailable Primary Care Provider Unavailabl e Encounter Details Date Type Department Care Team (Late st Contact Info) Description 11/21/2016 Conversion Encounter [facility] - [address] [address] Social History Tobacco Use Types Packs/Day Years [...]
--- OUTSIDE RECORDS SUMMARY | 2025-02-15 06:48 | XMS_ITS | Clinical Summary ---
Author Organization [facility] Address [address] [place] [address] Phone Care Team Providers Care Scrap Drop Engineer Name Role Phone Unavailable Primary Care Provider [...] of Obesity, No family history of Sudden /[place] under age 55, Family history of Dental [...] 83 10/26/2015 12:00 AM EDT Temperature 37.1 C (98.7 F) 10/26/2015 12:00 AM EDT Respiratory Rate - - Oxygen Saturation - [...] 12/01/2017 12/02/2007, 05/01/2001, 12/20/1998, Additional history exists HPV Vaccines (1 - 3-dose SCDM series) 2024 Influenza Vaccines (#1) 2024 04/16/2013, 03/23 COVID-19 Vaccine ( season) 2024 Hepatitis B Vaccines Completed 1997, 1997, 1997 HIB Vaccines Completed 07/28/1998, 11/06, 1997, Additional history exists IPV Vaccines Completed 05/01/2001, 04/08, 1997, Additional history exists MMR Vaccines Completed 05/01/2001, 05/01/1998 Meningococcal Vaccine Aged Out 09/13/2011 No jose alberto dimitris eligible based on patient's age to complete this topic Varicella Vaccines Completed 04/16/2013, 05/01/1998 Hepatitis A Vaccines Aged Out No long er eligible based on patient's age to complete this topic Men B Vaccine Aged Out No longer elig ible based on patient's age to complete this topic Pneumococcal Vaccine Aged Out No long er eligible based on patient's age to complete this topic Procedures * Due to [facility] law, this organization might not be sharing sensitive test results. Procedure Name Priority Date/Time Associated Diagnosis Comments CHLAMYDIA AND GONORRHEA, AMPLIFIED Routine 06/01/2014 3:33 PM EST from Last 3 Months or Most Recently Relevant to Health Maintenance Results * Due to [facility] law, this organization might not be sharing sensitive test results. * Chlamydia and Gonorrhoea, Amplified (06/01/2014 3:33 PM EST) URINE GC AMP PROBE NEGATIVE [facility] Comment: No Neisseria Gonorrhoeae RNA detected in this patient's sample REFERENCE VALUE: NEGATIVE NOTE: This test uses oxygraph operator-mediated amplification method to detect rRNA from C.Trachomatis [...] without risk of sexual abuse. Consult the [facility] if needed. Contact phone number . Therapeutic failure or success cannot be determined with the Aptima Combo2 assay since nucleic acid may persist following appropriate antimicrobial therapy. The Centers for Disease Control and Prevention (CDC) recommends confirmatory retesting using culture or a different nucleic acid amplification test when positive results occur, if indicated. Testing performed or reported by [facility], a Service of [facility], [address] [place] [address] Juan Sanchez MD, PhD, Fish Seiner URINE CHLAMYDIA AMP PROBE NEGATIVE [facility] Comment: No Chlamydia Trachomatis RNA detected in this patient's sample REFERENCE VALUE: NEGATIVE 06/01/2014 3:33 PM EST Narrative [facility] - 06/01/2014 3:33 PM EST URINE CHLAMYDIA GC AMP PROBE Avery Zavala MD LAB MICROBIOLOGY - GENERAL ORDER MOHAMUD Final Result [facility] [address] [place] [address], [place] from Last 3 Months or Most Recently Relevant to Health Maintenance
--- OUTSIDE RECORDS SUMMARY | 2025-02-15 06:48 | XMS_ITS | Encounter Summary ---
Author Organization [facility] Address [address] [place] [address] Phone Care Team Providers Care Viticulturist Name Role Phone Unavailable Primary Care Provider Unavailabl e Encounter Details Date Type Department Care Team (Late st Contact Info) Description 07/03/2010 Documentation [facility] [place] [address] [place] [address] Family Medicine, Physician [address], [place] [phone] Social History Tobacco Use Types Packs/Day Years [...]
--- OUTSIDE RECORDS SUMMARY | 2025-02-15 06:48 | XMS_ITS | Data Portability ---
Author Organization HAYDEN Tejada [facility] [address] Address [address] [place] [address] Care Team Providers Care Environmental Emergencies Assistant Name Role Phone [facility] Primary Care Provi becky Assessment Encounter Date Assessment Date Assessment LastModified by Organization Details LastModified Time 05/07/2022 05/07/2022 Feeling unwell x months. Fasting BS = 118, consistent with prediabetes. Check labs. PCP follow up advised. [email or web address] Not available 05/07/2022 11:12:12 Plan of Treatment Reminders Order Date Submit Date Provider Last Modified By Organization Details Last Modified Time Details Appointments None recorded . Lab CBC w/ auto diff 023 05/07/19 23 [facility]), [address] [place], [address], 3 16:06:21 HbA1c (hemoglo bin A1c), blood 023 05/07/19 23 [facility]), [facility] [place], [address], 3 08:07:26 TSH, ultra-se nsitive, serum 023 05/07/19 23 [facility], [facility] [place], [address], 3 08:07:27 CMP, serum or plasma 023 05/07/19 23 [facility], [address] [place] [address], [address], 3 08:07:25 glucose, fingerst ick, blood 023 05/07/19 [email or web address] [address], [address] [facility], [place], [address], 11:13:12 Referral None recorded . Procedures None recorded . Surgeries None recorded . Imaging None recorded . Medication Orders None recorded . Patient TargetsNo targets recorded. Patient Instructions Encounter Date Encounter Id Patient Instructions Last Modified By Organization Details Last Modified Time 05/07/2022 [id number] dizziness: care instructions Not available 05/07/2022 10:53:15 Follow up with your PCP, schedule an appointment. You will receive a call with your lab results in 1-2 days. Not available 05/07/2022 11:12:56 Reason for Referral None Reported. Results Created Date Observation Date Name Description Value Unit Range Abnormal Flag Note LastModifiedBy Organization Detail LastModifiedTime 05/07/1905/08/2022 COMP. METAB OLIC PANEL (14) glucose 88 mg/dL 70-99 Not Available [facility] ([facility]) [address] [place], [address], 05/08/2022 08:07:25 05/07/19 23 05/08/2022 COMP. METAB OLIC PANEL (14) BUN 10 mg/dL 6-20 Not Available [facility] ([facility]) [address] [place], [address], 05/08/2022 08:07:25 05/07/19 23 05/08/2022 COMP. METAB OLIC PANEL (14) creatinine 0.67 mg/dL 0.57-1 .00 Not Available [facility] ([facility]) [address] [place], [address], 05/08/2022 08:07:25 05/07/19 23 05/08/2022 COMP. METAB OLIC PANEL (14) eGFR 124 mL/mi n/1.7 3 >59 Not Available [facility] ([facility]) [address] [facility] [place], [address], 05/08/2022 08:07:25 05/07/19 23 05/08/2022 COMP. METAB OLIC PANEL (14) BUN/creatini ne ratio 15 9-23 Not Available [facility] ([facility]) [address] [facility] [place], [address], 05/08/2022 08:07:25 05/07/19 23 05/08/2022 COMP. METAB OLIC PANEL (14) sodium 140 mmol/ L 134-14 4 Not Available [facility] ([facility]) [address] [facility] [place], [address], 05/08/2022 08:07:25 05/07/19 23 05/08/2022 COMP. METAB OLIC PANEL (14) potassium 4.3 mmol/ L 3.5-5. 2 Not Available [facility] ([facility]) [address] [facility] [place], [address], 05/08/2022 08:07:25 05/07/19 23 05/08/2022 COMP. METAB OLIC PANEL (14) chloride 102 mmol/ L 96-106 Not Available [facility] ([facility]) [address] [facility] [place], [address], 05/08/2022 08:07:25 05/07/19 23 05/08/2022 COMP. METAB OLIC PANEL (14) carbon dioxide, total 19 mmol/ L 20-29 below low normal Not Available [facility] ([facility]) [address] [facility] [place], [address], 05/08/2022 08:07:25 05/07/19 23 05/08/2022 COMP. METAB OLIC PANEL (14) calcium 9.8 mg/dL 8.7-10 .2 Not Available [facility] ([facility]) [address] [place], [address], 05/08/2022 08:07:25 05/07/19 23 05/08/2022 COMP. METAB OLIC PANEL (14) protein, total 7.0 g/dL 6.0-8. 5 Not Available [facility] ([facility]) [address] [place], [address], 05/08/2022 08:07:25 05/07/19 23 05/08/2022 COMP. METAB OLIC PANEL (14) albumin 4.8 g/dL 3.9-5. 0 Not Available [facility] ([facility]) [address] [place], [address], 05/08/2022 08:07:25 05/07/19 23 05/08/2022 COMP. METAB OLIC PANEL (14) globulin, total 2.2 g/dL 1.5-4. 5 Not Available [facility] ([facility]) [address] [place], [address], 05/08/2022 08:07:25 05/07/19 23 05/08/2022 COMP. METAB OLIC PANEL (14) A/G ratio 2.2 1.2-2. 2 Not Available [facility] ([facility]) [address] [place], [address], 05/08/2022 08:07:25 05/07/19 23 05/08/2022 COMP. METAB OLIC PANEL (14) bilirubin, total 0.5 mg/dL 0.0-1. 2 Not Available [facility] ([facility]) [address] [place], [address], 05/08/2022 08:07:25 05/07/19 23 05/08/2022 COMP. METAB OLIC PANEL (14) alkaline phosphatase 60 IU/L 44-121 Not Available [facility] ([facility]) [address] [place], [address], 05/08/2022 08:07:25 05/07/19 23 05/08/2022 COMP. METAB OLIC PANEL (14) AST (SGOT) 30 IU/L 0-40 Not Available [facility] ([facility]) [address] [facility], [place], [address], 05/08/2022 08:07:25 05/07/19 23 05/08/2022 COMP. METAB OLIC PANEL (14) ALT (SGPT) 40 IU/L 0-32 above high normal Not Available [facility] ([facility]) [address] [place], [address], 05/08/2022 08:07:25 05/07/19 23 05/08/2022 HEMOG LOBIN A1C hemoglobin A1C 5.7 % 4.8-5. 6 above high normal Predi abete s: 5.7 - 6.4 Diabe pamella: >6.4 Glyce gaby contr ol for adult s with diabe pamella: <7.0 Not Available [facility] ([facility]) [address] [place], [address], 05/08/2022 08:07:26 05/07/19 23 05/08/2022 TSH TSH 0.857 uIU/m L 0.450- 4.500 Not Available [facility] ([facility]) [address] [place], [address], 05/08/2022 08:07:27 05/07/19 23 05/08/2022 CBC WITH DIFFE RENTI AL/PL ATELE T WBC TNP x10e3 /uL Test not perfo rmed. Insuf ficie nt speci men to perfo rm or compl ete hailee sis. Not Available [facility] ([facility]) [address] [place], [address], 05/08/2022 16:06:21 05/07/19 23 05/08/2022 CBC WITH DIFFE RENTI AL/PL ATELE T RBC TNP Test not perfo rmed Not Available [facility] ([facility]) [address] [facility], [place], [address], 05/08/2022 16:06:21 05/07/19 23 05/08/2022 CBC WITH DIFFE RENTI AL/PL ATELE T hemoglobin TNP Test not perfo rmed Not Available [facility] ([facility]) [address] [facility], [place], [address], 05/08/2022 16:06:21 05/07/19 23 05/08/2022 CBC WITH DIFFE RENTI AL/PL ATELE T hematocrit TNP Test not perfo rmed Not Available [facility] ([facility]) [address] [facility], [place], [address], 05/08/2022 16:06:21 05/07/19 23 05/08/2022 CBC WITH DIFFE RENTI AL/PL ATELE T MCV DATABASE DESIGN ANALYST Not Available [facility] ([facility]) [address] [facility] [place], [address], 05/08/2022 16:06:21 05/07/19 23 05/08/2022 CBC WITH DIFFE RENTI AL/PL ATELE T MCH DATABASE DESIGN ANALYST Not Available [facility] ([facility]) [address] [facility], [place], [address], 05/08/2022 16:06:21 05/07/19 23 05/08/2022 CBC WITH DIFFE RENTI AL/PL ATELE T MCHC DATABASE DESIGN ANALYST Not Available [facility] ([facility]) [address] [facility] [place], [address], 05/08/2022 16:06:21 05/07/19 23 05/08/2022 CBC WITH DIFFE RENTI AL/PL ATELE T RDW DATABASE DESIGN ANALYST Not Available [facility] ([facility]) [address] [facility], [place], [address], 05/08/2022 16:06:21 05/07/19 23 05/08/2022 CBC WITH DIFFE RENTI AL/PL ATELE T platelets TNP Test not perfo rmed Not Available [facility] ([facility]) [address] [facility], [place], [address], 05/08/2022 16:06:21 05/07/19 23 05/08/2022 CBC WITH DIFFE RENTI AL/PL ATELE T neutrophils TNP Test not perfo rmed Not Available [facility] ([facility]) [address] [facility], [place], [address], 05/08/2022 16:06:21 05/07/19 23 05/08/2022 CBC WITH DIFFE RENTI AL/PL ATELE T lymphs TNP Test not perfo rmed Not Available [facility] ([facility]) [address] [facility], [place], [address], 05/08/2022 16:06:21 05/07/19 23 05/08/2022 CBC WITH DIFFE RENTI AL/PL ATELE T monocytes TNP Test not perfo rmed Not Available [facility] ([facility]) [address] [place], [address], 05/08/2022 16:06:21 05/07/19 23 05/08/2022 CBC WITH DIFFE RENTI AL/PL ATELE T eos TNP Test not perfo rmed Not Available [facility] ([facility]) [address] [place], [address], 05/08/2022 16:06:21 05/07/19 23 05/08/2022 CBC WITH DIFFE RENTI AL/PL ATELE T basos DATABASE DESIGN ANALYST Not Available [facility] ([facility]) [address] [facility] [place], [address], 05/08/2022 16:06:21 05/07/19 23 05/08/2022 CBC WITH DIFFE RENTI AL/PL ATELE T immature cells DATABASE DESIGN ANALYST Not Available [facility] ([facility]) [address] [facility], [place], [address], 05/08/2022 16:06:21 05/07/19 23 05/08/2022 CBC WITH DIFFE RENTI AL/PL ATELE T neutrophils (absolute) DATABASE DESIGN ANALYST Not Available [facility] ([facility]) [address] [place], [address], 05/08/2022 16:06:21 05/07/19 23 05/08/2022 CBC WITH DIFFE RENTI AL/PL ATELE T lymphs (absolute) TNP Test not perfo rmed Not Available [facility] ([facility]) [address] [place], [address], 05/08/2022 16:06:21 05/07/19 23 05/08/2022 CBC WITH DIFFE RENTI AL/PL ATELE T monocytes(ab solute) DATABASE DESIGN ANALYST Not Available [facility] ([facility]) [address] [place], [address], 05/08/2022 16:06:21 05/07/19 23 05/08/2022 CBC WITH DIFFE RENTI AL/PL ATELE T eos (absolute) TNP Test not perfo rmed Not Available [facility] ([facility]) [address] [place], [address], 05/08/2022 16:06:21 05/07/19 23 05/08/2022 CBC WITH DIFFE RENTI AL/PL ATELE T baso (absolute) TNP Test not perfo rmed Not Available [facility] ([facility]) [address] [place], [address], 05/08/2022 16:06:21 05/07/19 23 05/08/2022 CBC WITH DIFFE RENTI AL/PL ATELE T immature granulocytes DATABASE DESIGN ANALYST Not Available [facility] ([facility]) [address] [place], [address], 05/08/2022 16:06:21 05/07/19 23 05/08/2022 CBC WITH DIFFE RENTI AL/PL ATELE T immature grans (abs) DATABASE DESIGN ANALYST Not Available [facility] ([facility]) [address] [facility], [place], [address], 05/08/2022 16:06:21 05/07/19 23 05/08/2022 CBC WITH DIFFE RENTI AL/PL ATELE T NRBC DATABASE DESIGN ANALYST Not Available [facility] ([facility]) [address] [facility], [place], [address], 05/08/2022 16:06:21 05/07/19 23 05/08/2022 CBC WITH DIFFE RENTI AL/PL ATELE T hematology comments: DATABASE DESIGN ANALYST Not Available [facility] ([facility]) [address] [facility], [place], [address], 05/08/2022 16:06:21 05/07/19 23 05/08/[address] PROBL EM request problem TNP Test not perfo rmed. Insuf ficie nt speci men to perfo rm or compl ete hailee sis. TEST: [id number] CBC With Diffe renti al/Pl atele t Not Available [facility] ([facility]) [address] [facility], [place], [address], 05/08/2022 16:06:22 05/07/19 23 05/07/2022 gluco se, finge rstic k, blood blood sugar - non fasting mg/dL 80-140 = normal Not Available [facility] [address] [place], [address], 05/07/2022 11:07:57 05/07/19 23 05/07/2022 gluco se, finge rstic k, blood blood sugar - fasting 118 mg/dL 80-125 = normal Not Available [email or web address] [place], [address], 05/07/2022 11:07:57 Result Notes None recorded. Problems Name Problem SNOMED Code Status Onset Date Resolution Date Notes Provider Name and Address Organization Details Recorded Time Bipolar disorder 96466812 Active 2022 ULICES cruz, [place] - [facility] 3 10:21:43 Attention deficit hyperactivi ty disorder 483943314 Active 2022 ULICES cruz, [place] - [facility] 3 10:21:50 Past history of pre-eclamps ia 6535361557813 00 Active 2022 ULICES cruz, [place] - [facility] 3 10:22:21 Problem Notes None recorded. Medical Equipment None Reported. Allergies Allergen ID Allergen Name Allergen Category Reaction Reaction Severity Criticality Documentation Date Start Date Code Code System Note Provider Name and Address Organization Details Recorded Time 064589 midazolam hydrochlo ride medicatio n other Not available Not available 05/07/202269992 8 RxNorm made me jeffry cruz, [place] - [facility] 3 10:20:44 Medications Name Sig Start Date Stop Date Status Note LastModified by Organization Details LastModified Time amoxicillin 500 mg capsule TAKE 1 CAPSULE BY MOUTH THREE TIMES A DAY 05/07 completed Not Available Not Available Not Available ibuprofen 800 mg tablet TAKE 1 TABLET BY MOUTH EVERY 6 TO 8 HOURS NEEDED 05/07 completed Not Available Not Available Not Available methylpheni date 10 mg tablet TAKE 1 TABLET BY MOUTH TWICE A DAY DIRECTED 05/07 completed Not Available Not Available Not Available methylpheni date 20 mg tablet TAKE 1 TABLET BY MOUTH TWICE A DAY active Not Available Not Available No t Available amoxicillin 200 mg/5 mL oral suspension TAKE 5 ML EVERY 12 HOURS DAILY 05/07 completed Not Available Not Available Not Available fluoxetine 10 mg capsule TAKE 1 CAPSULE BY MOUTH EVERY DAY 05/07 completed Not Available Not Available Not Available aripiprazol e 20 mg tablet TAKE 1 TABLET BY MOUTH EVERY DAY IN THE MORNING active Not Available Not Available No t Available aripiprazol e 5 mg tablet TAKE 2 TABLETS BY MOUTH EVERY DAY IN THE MORNING 01/31 /2023 completed Not Available Not Available Not Available [employer] a active Not Available Not Available Not Available Vitals Date Recorded Body height Body mass index (BMI) Body weight Body temperature Oxygen saturation Oxygen saturation in Arterial blood by Pulse oximetry Heart rate Respiratory rate Systolic And Diastolic Provider Name and Address Organization Details Last Updated DateTime 3 167.64 cm 30.7 kg/m2 50537.5 5 g 98.9 [degF] 99 % 99 % 97 /min 18 /min 125/86 mm[Hg] ULICES CALDERON PA - [facility] 3 10:27:42 Social History Question Answer Notes LastModified by BiOM Details LastModified Time Tobacco Smoking Status Current Every Day Smoker ULICES cruz [place] - [facility] 05/07/2022 10:22:52 How Much Tobacco Do You Smoke? 0.5 PPD [email or web address] Information not available 05/07/2022 Have You Recently Traveled Abroad? No [email or web address] Information not available 05/07/2022 Sex: Unknown Functional Status Question Answer Note LastModified by BiOM Details LastModified Time Do you use any illicit or recreational drugs? No [email or web address] Information not available 05/07/2022 Do you or have you ever used any other forms of tobacco or nicotine? No Information not available 05/07/2022 What is your level of alcohol consumption? None [email or web address] Information not available 05/07/2022 Mental Status None recorded. Family History Relationship Description Onset Age of this Age Resolved Age Notes LastModified by Organization Details LastModified Time Father No current problems or disability Not available 05/07 10:22:11 Mother No current problems or disability [email or web address] Not available 05/07 10:22:11 Medical History No medical history recorded. Gynecological HistoryNo gynecological history recorded. Obstetrics History GPAL:G 0 P 0 0 0 0 Past Encounters Encounter ID Performer Location Encounter Start Date Encounter Closed Date Diagnosis/Indication Diagnosis SNOMED-CT Code Diagnosis ICD10 Code Diagnosis IMO Codes Diagnosis Note [id number] [address] [address] [place] [address] 11/02/2018 08:24:36 11/02/2018 09:13:50 [id number] [address] [place] [address] 2020 15:57:27 2020 17:09:56 [id number] [address] [place] [address] 06/08/2020 10:43:51 06/08/2020 11:27:34 [id number] [address] [place] [address] 11/19/2020 08:01:49 11/19/2020 09:14:09 [id number] [address] [place] [address] 04/30/2021 08:40:24 04/30/2021 10:02:41 [id number] [address] [place] [address] 12/18/2014 18:51:39 12/18/2014 19:26:10 [id number] [address] [place] [address] 06/17/2018 15:42:08 06/17/2018 16:40:51 [id number] [address] [place] [address] 02/08/2017 14:43:05 02/08/2017 15:33:15 [id number] [address] [place] [address] 08/07/2016 08:42:06 08/07/2016 09:12:02 [id number] [address] [place] [address] 11/04/2017 13:58:36 11/04/2017 14:46:56 [id number] Mary Jo Huntley DO [address] [place] [address] 05/07/2022 10:13:28 05/07/2022 11:16:52 Dizziness 097181076 R42 Malaise and fatigue 2717 [address] R53.81 Health Concerns Section Related Observation LastModified by Organization Detai ls LastModified Time None Recorded Concern Status LastModified by Organization Details LastModified Time None Recorded Advance Directives Directive None Recorded Payers Insurance Date Sequence Insurance Name Policy Number Policy Winters Covered Member ID Winters Member ID Guarantor Name 12/18/2022 1 [place] [id number] Chely Rito [id number] Chely Rito 12/18/2022 2 [place]: [facility] Chely A Rito [id number] Chely Rito Notes Date Note Type Note Provider Name and Address Organization Details Recorded Time 05/07/2022 text/html Dizziness UCReported by Patient Has not felt well in 6 months. Describes feeling lightheaded and fatigued, worse in the AM. I feel gross and disgusting in the morning. PGM with DM, read the symptoms online and is worried that she is diabetic. Gained 50 pounds with , son is 2 years. Denies depression. Followed by Psych for bipolar, meds are stable, mood is stable. Had labs via Psych 2 months ago, everything was fine . Last seen by PCP 1 year ago, called today, long hold times, presents to . [facility], [address] [place], [address], [place] - [facility] 05/07/2022 12:10:36 OBGyn Episode No OBEpisode recorded.
--- OUTSIDE RECORDS SUMMARY | 2025-02-15 06:48 | XMS_ITS | Clinical Summary ---
Author Organization [facility] Address [address] [place], [place] [id number] Phone Care Team Providers Care Industrial Plant Custodian Name Role Phone Siria Monzon MD Primary Care Provider [phone] Allergies Active Allergy Reactions Criticality Noted Date Comments Midazolam Other (See Comments) 02/17/2018 Paradoxical reaction Medications amLODIPine (NORVASC) 10 MG tablet Take 5 mg by mouth daily. Active losartan (COZAAR) 25 MG tablet Take 25 mg by mouth. 4 Active VENTOLIN HFA 90 mcg/actuation inhaler TAKE 1 (INHALATION) EVERY 4 HOURS (COUGH) 5 Active cetirizine (ZYRTEC) 10 MG tablet TAKE 1 TABLET (ORAL) DAILY ( NEEDED FOR ALLERGY SYMPTOMS) FOR 14 DAYS 5 Active fluconazole (DIFLUCAN) 150 MG tablet every 7 days. Active levonorgestreL (LILETTA) 20.4 mcg/24 hr (8 yrs) 52 mg IUD 52 mg. 5 Active neomycin-polymy aris B-dexAMETHasone (MAXITROL) 3.5mg/mL-10,000 unit/mL-0.1 % ophthalmic suspension Place 1 drop into each eye 4 (four) times a day. 5 mL 5 Active Additional Information Patient not taking.Reported on 12/16/2024 Active Problems Problem Noted Date Diagnosed Date Palpitations 11/04/2024 Assessment & Plan (11/04/2024 4:38 PM EDT): Ongoing symptoms of this. Cardiac testing including MCT monitor, echocardiogram as well as exercise stress test have not shown any cardiac cause of the symptoms. She is concerned that this might be related to her thyroid although she did notably have normal TSH on labs in May. Recommend she follow-up with her PCP Dizziness and giddiness 11/04/2024 Assessment & Plan (11/04/2024 4:39 PM EDT): She been having frequent episodes of dizziness at times feels presyncopal. Previously did have preeclampsia, she was started on amlodipine and losartan, previously had been taken off of these medications but then had elevated blood pressure readings in the 160 systolic and restarted both of them. Blood pressure in the office today 100/60, at home typically running low 100s systolic. Wondering if low blood pressure might be contributing to her symptoms of dizziness Decrease amlodipine to 5 mg daily Continue losartan 25 mg daily She will start keeping a blood pressure log in a week, if blood pressure still running low we can try stopping the amlodipine altogether. She is going to reach out to me either via phone or patient portal to discuss her home blood pressure reading. Malaise and fatigue 11/04/2024 Assessment & Plan (11/04/2024 4:41 PM EDT): Worsening fatigue and daytime sleepiness. She says that when she was in the hospital giving to her son every time she would start to go to sleep she would desaturate and the nurses would have to come in and put her on oxygen. She does snore at night, will also wake up gasping for air sometimes. She is already scheduled for an appointment with Dr. Alcaraz to evaluate for JONATHAN. If she does indeed have JONATHAN hopefully treatment will help her feel better. Family history of cardiomyopathy 11/04/2024 Assessment & Plan (11/04/2024 4:42 PM EDT): Her father did have hypertrophic cardiomyopathy. She has a structurally normal heart on echocardiogram 10/2024 She is concerned about being a genetic carrier for cardiomyopathy, she does have a 5-year-old son, inquiring about getting tested. Going forward we will have her transfer care to another auction clerk, previously was seen by Dr. Lester. If genetic testing is indicated this can be ordered. Encounters Date Type Department Care Team Description 12/16/2024 3:45 PM EDT Office Visit [facility] [address], [address] [place] [address] Dorian Alcaraz MD JONATHAN (obstructive sleep apnea) (Primary Dx); Vertigo 11/16/2024 3:00 PM EDT Office Visit [facility] at [address] [place] [address] Jacy Syed NP Skin irritation (Primary Dx) from Last 3 Months Family History Medical History Relation Comments Hypertrophic cardiomyopathy Father Hypertension Maternal Grandmother Prediabetes Mother Stroke Paternal Grandmother Heart attack Unspecified Relation Status Comments Father Maternal Grandmother Mother Paternal Grandmother Unspecified Social History Tobacco Use Types Packs/Day Years Used Date Smoking Tobacco: Every Day Cigarettes Smokeless Tobacco: Never Tobacco Cessation:Ready to Q uit: Not Asked; Counseling Given: Not Answered Education Answer Date Recorded Are you interested [...] Sign Reading Time Taken Comments Blood Pressure 112/62 12/16/2024 3:13 PM EDT Pulse 90 12/16/2024 3:13 PM EDT Temperature 36.1 C (97 F) 11/16/2024 3:05 PM EDT Respiratory Rate 16 11/16/2024 3:05 PM EDT Oxygen Saturation 98% 12/16/2024 3:13 PM EDT Inhaled Oxygen Concentration - - Weight 59.9 kg (132 lb) 12/16/2024 3:13 PM EDT Height 167.6 cm (5' 5.98 ) 12/16/2024 3:13 PM ED T Body Mass Index 21.32 12/16/2024 3:13 PM EDT Plan of Treatment Upcoming Encounters Date Type Department Care Team (Late st Contact Info) Description 04/05/2025 11:00 AM EST Office Visit [facility] [address] Floor, [address] [place] [address] Dorian Alcaraz MD [address] [facility], [address] [place] [address] 05/13/2025 4:30 PM EST Office Visit [facility] [address], [address] [place] [address] Abner Rajan, SOCIETY REPORTER [address] [place] [address] [email or web address] Health Maintenance Due Date Last Done Comments CREATININE LEVEL 1997 POTASSIUM LEVEL 1997 DEPRESSION SCREENING 2009 SMOKING Hx and SMOKELESS TOBACCO SCREENING 2010 HEPATITIS C SCREENING 2015 HIV ONE-TIME SCREENING (18-65 YEARS) 2015 PNEUMOCOCCAL VACCINES (0-49 years) (1 of 2 - PCV) 2016 Adult Td,Tdap Booster 12/01/2017 12/02/2007 PAP SMEAR 2018 INFLUENZA VACCINE (#1) 2024 04/21/2019, 2018 COVID-19 VACCINE ( - season) 2024 HIB VACCINES Completed 07/28/1998, 11/06, 1997, Additional history exists MENINGOCOCCAL VACCINES (ACWY) Aged Out 09/13/2011 No longer eligible based on patient's age to complete this topic HEPATITIS A VACCINES Aged Out No long er eligible based on patient's age to complete this topic MENINGOCOCCAL VACCINES (B) Aged Out N o longer eligible based on patient's age to complete this topic Medical Devices Not on file Insurance [facility] [place] [address] [place] [address] [facility] [place] [address] [address] [facility] Care Teams Industrial Plant Custodian Relationship Specialty Start Date End Date Siria Monzon MD [address] [place] [id number] PCP - General Internal Medicine 02/02/24 Additional Source Comments The information contained in this document represents components of the legal health record. It is not the complete legal health record.[facility]
--- OUTSIDE RECORDS SUMMARY | 2025-02-15 06:48 | XMS_ITS | Encounter Summary ---
Author Organization [facility] Address [address] [place] [address] Phone Care Team Providers Care Training Technician Name Role Phone Unavailable Primary Care Provider Unavailabl e Encounter Details Date Type Department Care Team (Late st Contact Info) Description 11/12/2010 Documentation [facility] Family Medicine [address] [place] [address] Family Medicine, Physician [address], [place] [phone] Social History Tobacco Use Types Packs/Day Years [...]
--- OUTSIDE RECORDS SUMMARY | 2025-02-15 06:48 | XMS_ITS | Encounter Summary ---
Author Organization [facility] Address [address] [place] [address] [place] [phone] Phone Care Team Providers Care Belt Changer Name Role Phone Siria Monzon MD Primary Care Provider [phone] Encounter Details Date Type Department Care Team (Late st Contact Info) Description 05/04/2024 Procedure Pass Echo Lab [address] [place] [address] Social History Tobacco Use Types Packs/Day Years [...] Description 04/05/2025 11:00 AM EST Office Visit [facility] [address] [place] [address] 3rd [facility], [address] [place] [address] Dorian Alcaraz MD 22 [facility], [address] [address] 05/13/2025 4:30 PM EST Office Visit [facility] [address] [place] [address] 3rd Floor, [address] [place] [address] Abner Rajan, SOLAR FIELD INSTALLATION CREW MEMBER [address] [place] [address] [email or web address] documented as of this encounter Visit Diagnoses Not on filedocumented in this encounter Care Teams Belt Changer Relationship Specialty Start Date End Date Siria Monzon MD [address] [place] [phone] PCP - General Internal Medicine 02/02/24 documented as of this encounter Additional Source Comments The information contained in this document represents components of the legal health record. It is not the complete legal health record.[facility]
--- OUTSIDE RECORDS SUMMARY | 2025-02-15 06:48 | XMS_ITS | Encounter Summary ---
Author Organization [facility] Address [address] [place] [address] Phone Care Team Providers Care Cleaner Operator Name Role Phone Unavailable Primary Care Provider Unavailabl e Encounter Details Date Type Department Care Team (Late st Contact Info) Description 06/07/2009 Documentation [facility] [place] Medicine [address] [place] [address] Family Medicine, Physician [address], [place] [address] Social History Tobacco Use Types Packs/Day Years [...]
--- OUTSIDE RECORDS SUMMARY | 2025-02-15 06:48 | XMS_ITS | Clinical Summary ---
Author Organization [facility] Address [address] [place] [address] Care Team Providers Care Sole Molder Name Role Phone Siria Monzon MD Primary Care Provider [phone] Allergies Active Allergy Reactions Criticality Noted Date Comments Midazolam Other 02/17/2018 Paradoxical reaction Medications losartan (COZAAR) 25 mg tablet Take 1 tablet (25 mg total) by mouth 1 (one) time each day. for 90 days 90 tablet 1 09/14/2024 Active fluconazole (DIFLUCAN) 150 mg tablet Take 1 tablet (150 mg total) by mouth 1 (one) time per week. 10/14/2024 Active cariprazine (VRAYLAR) 1.5 mg capsuleIndicati ons:Bipolar 2 disorder ([facility]/HCC V24, CMS/[facility] V28) Take 1 capsule (1.5 mg total) by mouth 1 (one) time each day. 30 each 12/17/2024 01/17/20 25 Active Problems Problem Noted Date Diagnosed Date Primary hypertension 03/10/2024 ADHD (attention deficit hyperactivity disorder) 01/19/2024 Anxiety 01/19/2024 Overview (01/19/2024): Unsuccessful partial hospitalization Spring 2012 Mood disorder ([facility] V24) 01/19/2024 Bipolar disorder (CMS/HCC V24, CMS/HCC V28) 05/08 Overview (01/19/2024): Per [facility] healt form [facility] Left ovarian cyst 01/21/2019 Depressive disorder 03/17/2018 Overview (01/19/2024): Was on risperdone Frequent UTI 03/17/2018 Lactose intolerance 03/17/2018 PTSD (post-traumatic stress disorder) 03/17/2018 Encounters Date Type Department Care Team Description 12/17/2024 10:00 AM EDT Office Visit Adult [address] [phone] Samm Zuniga, GISELE Bipolar 2 disorder (CMS/HCC V24, CMS/HCC V28) (Primary Dx) 11/25/2024 11:30 AM EDT Office Visit Adult [address] [phone] Siria Monzon MD Fatigue, unspecified type (Primary Dx); Extremity numbness; Primary hypertension; Hair loss; Malar rash; Mood disorder ([facility]/HCC V24); PTSD (post-traumatic stress disorder) 11/19/2024 Telephone Adult [address] [phone] Siria Monzon MD from Last 3 Months Immunizations Immunization Administration Dates Next Due DTaP (Infanrix) 6wks to less than 7yo ,12/20/1998,1997,09/20,1997 [id number] (Pentacel) 2mo to less than 5yo 07/28/1998,1997,1997,07/18 [...] Mood disorder (CMS/HCC V24) DX:M ood disorder ([facility]) Anxiety DX:Anxiety Depressive disorder 03/17/2018 DX:Depressiv e [...] Smoking Tobacco: Every Day Smokeless Tobacco: Never Alcohol Use Standard Drinks/Week Comments Yes 0 [...] care for your loved ones. For example, director of early childhood or elderly care for an older adult? [...] Date Recorded What is your living situation? Unrecognized valu e 04/23/2024 Comments No Sex and Gender Information Value Date Recorded Sex Assigned at Not on file Legal Sex Female 2:17 PM EST Gender Identity Not on file Sexual Orientation Not on file Obstetrics History Last Filed Vital Signs Vital Sign Reading Time Taken Comments Blood Pressure 124/73 12/17/2024 9:57 AM EDT Pulse 58 12/17/2024 9:57 AM EDT Temperature 36.6 C (97.8 F) 11/25/2024 11:28 AM EDT Respiratory Rate 19 12/17/2024 9:57 AM EDT Oxygen Saturation 98% 11/25/2024 11: 28 AM EDT Inhaled Oxygen Concentration - - Weight 61.6 kg (135 lb 14.4 oz) 12/17/2024 9:57 AM EDT Height 167.6 cm (5' 6 ) 12/17/2024 9:57 AM EDT Body Mass Index 21.93 12/17/2024 9:57 AM EDT Plan of Treatment Health Maintenance Due Date Last Done Comments Pneumococcal Vaccine: Pediatrics (0 to 5 Years) and At-Risk Patients (6 to 49 Years) (1 of 2 - PCV) 2016 DTaP,Tdap,and Td Vaccines (7 - Td or Tdap) 12/01/2017 12/02/2007, 05/01/2001, 05/01/2001, Additional history exists Cervical Cancer Screening: Pap Smear 2018 HIV Screening 03/06/2022 Hepatitis C Screening 03/06/2022 HPV Vaccines (1 - 3-dose SCDM series) 2024 COVID-19 Vaccine ( - season) 2024 06/04/2021, 09/24/2020, 08/27/2020 Influenza Vaccine (#1) 2024 9, 02/17/2018, 04/16/2013, Additional history exists Hypertension/CHF/CAD Annual BMP Blood Test 01/07/2025 01/08/2024, 01/08/2024 Social Influencers of Health Screening 04/23/2025 04/23/2024 Cholesterol Screening (Lipid Panel) 01/07/2029 01/08/2024, 01/08/2024 RSV Immunization Adult Patients (1 - 1-dose 75+ series) 2072 Hepatitis B Vaccines Completed 1997, 1997, 1997 HIB Vaccines Completed 07/28/1998, 07/07, 1997, Additional history exists IPV Vaccines Completed 05/01/2001, 07/07, 05/01/1998, Additional history exists MMR Vaccines Completed 05/01/2001, 05/01/1998 Meningococcal ACWY Vaccine Aged Out 09/13/2011 N o longer eligible based on patient's age to complete this topic Varicella Vaccines Completed 04/16/2013, 05/01/1998 Depression Screening Completed 04/23/2024 Hepatitis A Vaccines Aged Out No long er eligible based on patient's age to complete this topic Meningococcal B Vaccine Aged Out No l onger eligible based on patient's age to complete this topic RSV Immunization Patients Under 20 months Aged Out No longer eligible based on patient's age to complete this topic Procedures Procedure Name Priority Date/Time Associated Diagnosis Comments ANNUAL BMP BLOOD TEST Routine 01/08/2024 LIPID PANEL Routine 01/08/2024 from Last 3 Months or Most Recently Relevant to Health Maintenance Results * Annual BMP Blood Test (01/08/2024) Pathologist [facility] Annual BMP Blood Test abstracted Historical Provider [...] Most Recently Relevant to Health Maintenance Insurance [facility] [place] [address] Care Teams Sole Molder Relationship Specialty Start Date End Date Siria Monzon MD [address] [place] [address] PCP - General Internal Medicine 03/23/24
--- OUTSIDE RECORDS SUMMARY | 2025-02-15 06:48 | XMS_ITS | Encounter Summary ---
Author Organization [facility] Address [address] [place] [address] Phone Care Team Providers Care Multi Punch Operator Name Role Phone Unavailable Primary Care Provider Unavailabl e Encounter Details Date Type Department Care Team (Late st Contact Info) Description 08/17/2012 Documentation [facility] Family Medicine [address] [place] [address] Family Medicine, Physician [address] [place], [place] [address] Social History Tobacco Use Types Packs/Day Years [...]
--- OUTSIDE RECORDS SUMMARY | 2025-02-15 06:48 | XMS_ITS | Encounter Summary ---
Author Organization [facility] Address [address] [place] [phone] Phone Care Team Providers Care Annual Greenhouse Manager Name Role Phone Unavailable Primary Care Provider Unavailabl e Encounter Details Date Type Department Care Team (Late st Contact Info) Description 06/07/2009 Documentation [facility] Family Medicine [address] [place] [address] Family Medicine, Physician [address], [place] [address] Social History Tobacco Use Types Packs/Day Years [...]
--- OUTSIDE RECORDS SUMMARY | 2025-02-15 06:48 | XMS_ITS | Encounter Summary ---
Author Organization [facility] Address [address] [place] [address] Phone Care Team Providers Care Electric Truck Crane Operator Name Role Phone Unavailable Primary Care Provider Unavailabl e Encounter Details Date Type Department Care Team (Late st Contact Info) Description 05/18/2013 Documentation [facility] Family Medicine [address] [place] [address] Family Medicine, Physician [address], [place] [address] Social History Tobacco Use Types Packs/Day Years [...]
--- OUTSIDE RECORDS SUMMARY | 2025-02-15 06:48 | XMS_ITS | Encounter Summary ---
Author Organization [facility] Address [address] [place] [address] Phone Care Team Providers Care Dope Mixer Name Role Phone Unavailable Primary Care Provider Unavailabl e Encounter Details Date Type Department Care Team (Late st Contact Info) Description 07/03/2010 Documentation [facility] Family Medicine [address] [place] [address] Family Medicine, Physician [address], [place] [address] Social History Tobacco Use Types Packs/Day Years [...]
--- OUTSIDE RECORDS SUMMARY | 2025-02-15 06:48 | XMS_ITS | Encounter Summary ---
Author Organization [facility] Address [address] [place] [address] Phone Care Team Providers Care Pest Control Worker Helper Name Role Phone Unavailable Primary Care Provider Unavailabl e Encounter Details Date Type Department Care Team (Late st Contact Info) Description 07/03/2012 Documentation [facility] Family Medicine [address] [place] [address] Family Medicine, Physician [address], [place] [address] Social History Tobacco Use Types Packs/Day Years [...]
[2025-02-15 08:17] LABS: MANUAL DIFF FLAG NO
[2025-02-15 08:22] LABS: Hematocrit 39.4 % (37.0-47.0); Hemoglobin 13.7 g/dl (12.0-16.0); Imm Gran Abs Auto 0.03 X10*3/uL (0.00-0.03); Imm Gran Pct Auto 0.3 % (0.0-0.4); Lymphocytes Absolute Auto 2.2 X10*3/uL (1.2-4.9); Mean Corpuscular HGB Conc 34.8 g/dl (31.0-35.0); Mean Corpuscular Hemoglobin 30.4 pg (27.0-33.0); Mean Corpuscular Volume 87.6 fL (80.0-98.0); NRBC Abs Auto 0.000 X10*3/uL (0.0-0.012); NRBC Pct Auto 0.0 /100WBC (0.0-0.2); Platelet Count 275 X10*3/uL (160-400); Red Blood Count 4.50 X10*6/uL (4.20-5.50); White Blood Count 10.0 X10*3/uL (4.8-10.8)
--- NOTE | 2025-02-15 08:23 | ED.GENADULT ---
HPI - General Adult General Chief complaint: Skin/Abscess/Foreign Body Stated complaint: RASH Time Seen by Provider: 02/15/25 07:06 History of Present Illness ED Provider: Jero Lima HPI narrative: 29 y/o F patient; H BV on metrogel since Monday 02/12; presents from home reporting a red, itchy rash to her legs, arms, chest, abdomen, back, and breasts. No involvement of face, palms, soles, or mucous membranes. Associated with mild shortness of breath. + Sick contact at home with non-specific viral illness. Otherwise denies: fever or chills, SOB, cough/congesion, chest pain, nausea/vomiing, abdominal pain, headache. Related Data Previous Rx's ?Medication ?Instructions ?Recorded lisinopril 5 mg tablet 5 mg PO DAILY #14 tabs 12/27/23 phenazopyridine 200 mg tablet 200 mg PO TID PRN pain 6 doses #6 06/22/24 (Pyridium) tabs cetirizine 10 mg tablet 10 mg PO DAILY 7 days #7 tabs 02/15/25 prednisone 20 mg tablet 60 mg (3 x 20 mg) PO DAILY 5 days 02/15/25 #15 tabs Allergies Allergy/AdvReac Type Severity Reaction Status Date / Time midazolam (From VERSED) Allergy Severe VIOLENT Verified 02/15/25 06:26 versed Allergy Unknown unsure Uncoded 02/15/25 06:26 reactive as child Review of Systems Review of Systems: Yes all other systems are reviewed and are negative PMFSH Past Medical History Attestation statement: The following information was validated with the patient. Source: old records reviewed Social History Social History Substance Use Type: Marijuana Advance Directives: No Advance Directives Information Provided: Yes Physical Exam ED Vital Signs: Vital Signs - 24 hr 02/15/25 06:24 Temperature 97.8 F Pulse Rate 73 Respiratory Rate 20 Blood Pressure 137/73 Pulse Oximetry 100 Oxygen Delivery Method Room Air BMI result Body Mass Index 21.0 Patient is afebrile and hemodynamically stable. Const General: cooperative and no acute distress Orientation/consciousness: patient oriented x3 HENMT Head: Yes normal to inspection and Yes atraumatic Eyes General: appearance normal, both eyes and all related structures Pupils: Equal, round and reactive pupils present EOM: EOMs intact bilaterally Neck Neck: Yes normal visual inspection, Yes full ROM, Yes supple and No tender Chest Chest palpation & inspection: normal inspection of the chest and normal palpation of entire chest wall Resp Effort & Inspection: normal respiratory effort, able to speak in complete sentences and no cough Auscultation: clear to auscultation bilaterally Cardio Rate: regular rate Rhythm: regular rhythm Peripheral pulses: Peripheral pulses 2+ throughout GI Inspection: Yes normal to inspection, No Abdominal wall edema and No distended Palpation (GI): Soft to palpation, not firm, nontender, no guarding and not rigid Auscultation: normal bowel sounds Back/Spine/Pelvis Back: No back tenderness Skin Other: Maculopapular rash to back, chest wall including breasts, abdomen, legs, arms. No involvement of palms or soles. No involvement of mucous membranes. Neuro General: patient oriented x3 Cranial nerves: Yes Equal, round and reactive pupils present Course Course Course Narrative: Patient is afebrile and hemodynamically stable. Non-specific maculopapular rash. Will obtain basic labs, strep screen, and monospot. Will treat with loratidine, prednisone, benadryl. Patient denies any new foods or products. Has taken metrogel many times before without any reaction. Labs reviewed. No significant leukocytosis. No significant anemia. Strep is negative. [place] is negative. Plan: Discharge to home Condition: Stable Rx benadryl, cetirizine, and prednisone sent to pharmacy Medications Administered Discontinued Medications Generic Name Dose Route Start Last Admin Trade Name Roscoeq PRN Reason Stop Dose Admin Diphenhydramine HCl 50 mg 02/15/25 07:56 02/15/25 08:05 Diphenhydramine Hcl 25 Mg Capsule PO 02/15/25 07:57 50 mg ONCE ONE Administration Loratadine 10 mg 02/15/25 07:56 02/15/25 08:05 Loratadine 10 Mg Tablet PO 02/15/25 07:57 10 mg ONCE ONE Administration Prednisone 60 mg 02/15/25 07:56 02/15/25 08:05 Prednisone 20 Mg Tablet PO 02/15/25 07:57 60 mg ONCE ONE Administration Medical Decision Making Lab Data 02/15/25 08:11 02/15/25 08:11 Labs: Lab Results 02/15/25 Range/Units 08:11 WBC 10.0 (4.8-10.8) X10*3/uL RBC 4.50 (4.20-5.50) X10*6/uL Hgb 13.7 (12.0-16.0) g/dl Hct 39.4 (37.0-47.0) % MCV 87.6 (80.0-98.0) fL MCH 30.4 (27.0-33.0) pg MCHC 34.8 (31.0-35.0) g/dl RDW 11.9 (11.0-16.0) % Plt Count 275 (160-400) X10*3/uL MPV 9.7 (9.4-12.3) fL Immature Gran % (Auto) 0.3 (0.0-0.4) % Neut % (Auto) 68.7 (45-73) % Lymph % (Auto) 22.1 (20-40) % [place] % (Auto) 7.3 (2-11) % Eos % (Auto) 1.1 (0-4) % Baso % (Auto) 0.5 (0-2) % Lymph # (Auto) 2.2 (1.2-4.9) X10*3/uL [place] # (Auto) 0.7 (0.1-1.2) X10*3/uL Eos # (Auto) 0.1 (0.0-0.4) X10*3/uL Baso # (Auto) 0.1 (0.0-0.2) X10*3/uL Abs Immat Gran (auto) 0.03 (0.00-0.03) X10*3/uL Absolute Neuts (auto) 6.8 (2.0-8.3) x10*3/uL Absolute Nucleated RBC 0.000 (0.0-0.012) X10*3/uL Nucleated RBC % (auto) 0.0 (0.0-0.2) /100WBC Sodium 140 (135-145) mmol/L Potassium 4.2 (3.3-5.1) mmol/L Chloride 107 (96-108) mmol/L Carbon Dioxide 26 (22-29) mmol/L Anion Gap 11 L (12-20) BUN 7 L (9-16) mg/dL Creatinine 0.67 (0.5-1.4) mg/dL Estim Creat Clear Calc 117.4 Estimated GFR > 60 Random Glucose 93 (60-115) mg/dL Calcium 9.1 (8.4-10.2) mg/dL Beta HCG, Quant < 2 mIU/mL Monoscreen Negative (Negative) S. pyogenes GrpA DARCI Negative (Negative) Discharge Plan Discharge Clinical Impression: Urticaria Patient Disposition: Home, Self-Care Instructions: Urticaria (ED) Additional Instructions: You were seen today for an itchy rash. We discussed it is non-specific and likely is occurring due to high histamine response. It is not contagious by touch. Things that can make it worse: Hot shower Exercise Stress Spicy foods Things that can help: Cool/cold bath Benadryl 50mg every 8 hours as needed Cetirizine once a day for the next 7 days (take next dose tomorrow) Steroid (prednisone) once a day for the next 5 days (take next dose tomorrow). It will likely get worse before it gets better. Things to watch for/return: Fever Difficulty breathing Nausea/vomiting Prescriptions: New prednisone 20 mg tablet 60 mg PO DAILY 5 Days Qty: 15 0RF cetirizine 10 mg tablet 10 mg PO DAILY 7 Days Qty: 7 0RF No Action lisinopril 5 mg tablet 5 mg PO DAILY Qty: 14 0RF phenazopyridine [Pyridium] 200 mg tablet 200 mg PO TID PRN (Reason: pain) Qty: 6 0RF Print Language: [place] Citizen
[2025-02-15 08:34] LABS: IDNOW Serial# 55D5AD1C; Strep A Nucleic Acid Negative (Negative)
[2025-02-15 08:40] LABS: Anion Gap 11 (12-20); Blood Urea Nitrogen 7 mg/dL (9-16); Calcium 9.1 mg/dL (8.4-10.2); Carbon Dioxide 26 mmol/L (22-29); Chloride 107 mmol/L (96-108); Creatinine Clr Calc Pharmacy 117.4; Estimated Glomerular Filt Rate > 60; Potassium 4.2 mmol/L (3.3-5.1); Sodium 140 mmol/L (135-145)
[2025-02-15 09:19] VITALS: BP 00/00; PULSE 0; RESP 0; TEMP -17.7; TEMP 0; O2SAT 0
== END 2025-02-15 09:19 | disposition home or self-care (01) ==
PROVIDERS: Emergency Provider Emergency Medicine; PCP Internal Medicine
DX: L50.9 Urticaria, unspecified (principal); Z20.9 Contact with and (suspected) exposure to unspecified communicable disease
CPT/HCPCS: 80048; 84702; 85025; 86308; 87651; 99283; 99284